=== PATIENT | female | born 1980 | race Caucasian/White ===

== ENCOUNTER → 2020-12-04 11:10 | Outpatient (BNVA) | payer OTHER, SELFPAY | PROVIDERS: PCP Internal Medicine; Visit Provider Physician Assistant ==

== ENCOUNTER → 2020-12-05 07:22 | Outpatient (BNVA) | payer OTHER, SELFPAY | PROVIDERS: PCP Internal Medicine; Visit Provider Surgery ==

== ENCOUNTER 2020-12-08 06:21 | Outpatient (REF) | payer OTHER, SELFPAY ==
[2020-12-08 07:37] LABS: MANUAL DIFF FLAG NO
[2020-12-08 07:46] LABS: Basophils Percent Auto 0.2 % (0-2); Eosinophils Absolute Auto 0.3 X10*3/uL (0.0-0.4); Eosinophils Percent Auto 2.4 % (0-4); Hematocrit 44.9 % (37-47); Hemoglobin 14.3 g/dl (12.0-16.0); Imm Gran Abs Auto 0.08 X10*3/uL (0.00-0.03); Imm Gran Pct Auto 0.8 % (0.0-0.4); Lymphocytes Absolute Auto 2.8 X10*3/uL (1.2-4.9); Lymphocytes Percent Auto 26.7 % (20-40); Mean Corpuscular HGB Conc 31.8 g/dl (31.0-35.0); Mean Corpuscular Hemoglobin 26.3 pg (27.0-33.0); Mean Corpuscular Volume 82.7 fL (80-98); Mean Platelet Volume 10.5 fL (9.4-12.3); Monocytes Absolute Auto 0.6 X10*3/uL (0.1-1.2); Monocytes Percent Auto 5.4 % (2-11); Neutrophils Absolute Auto 6.8 X10*3/uL (2.0-8.3); Neutrophils Percent Auto 64.5 % (45-73); Platelet Count 296 X10*3/uL (160-400); Red Blood Count 5.43 X10*6/uL (4.20-5.50); Red Cell Distribution Width 15.9 % (11.0-16.0); White Blood Count 10.6 X10*3/uL (4.8-10.8)
[2020-12-08 07:54] LABS: Estimated Average Glucose 117 mg/dL; Hemoglobin A1c % 5.7 %
[2020-12-08 08:04] LABS: Alanine Aminotransferase 22 U/L (0-31); Alkaline Phosphatase 65 U/L (39-117); Anion Gap 12 (12-20); Aspartate Amino Transferase 16 U/L (5-31); Bilirubin Total 0.6 mg/dL (0.0-1.0); Blood Urea Nitrogen 14 mg/dL (9-16); C Reactive Protein 2.51 mg/dL (< or = 0.50); Calcium 9.2 mg/dL (8.4-10.2); Carbon Dioxide 25 mmol/L (22-29); Chloride 106 mmol/L (96-108); Cholesterol 141 mg/dL; Estimated Glomerular Filt Rate > 60; Glucose Random 98 mg/dL (60-115); HDL Cholesterol 24 mg/dL; Iron 75 mcg/dL (30-160); LDL Cholesterol Calculated 83 mg/dl; Percent Iron Saturation 24 % (15-50); Potassium 4.1 mmol/L (3.3-5.1); Sodium 139 mmol/L (135-145); Total Iron Binding Capacity 314 mcg/dL (228-428); Total Protein 6.9 g/dL (6.5-8.0); Triglycerides 171 mg/dL; Unsaturated Iron Binding 239 ug/dL
[2020-12-08 08:24] LABS: Ferritin 49 ng/mL (10-250); Vitamin D 25-OH Total 16.8 ng/mL (>30)
[2020-12-08 09:49] LABS: Folate 9.3 ng/mL (> or = 4.0); Vitamin B12 310 pg/mL (200-900)
[2020-12-09 08:51] LABS: Insulin Level Total 31.8 uIU/mL
[2020-12-09 13:46] LABS: H Pylori Breath Test DETECTED (NOT DETECTED)
[2020-12-09 23:22] LABS: Calcium (PTHI) 9.1 mg/dL (8.6-10.2); PTHI 42 pg/mL (14-64)
[2020-12-11 15:47] LABS: Zinc 74 mcg/dL (60-130)
[2020-12-11 23:03] LABS: Vitamin A 42 mcg/dL (38-98)
[2020-12-12 11:32] LABS: Vitamin B1 9 nmol/L (8-30)
== END 2020-12-08 06:22 | disposition home or self-care (01) ==
LOC: HO.LAB 06:21
PROVIDERS: PCP Internal Medicine; Visit Provider Surgery
DX: E66.01 Morbid (severe) obesity due to excess calories (principal); K21.9 Gastro-esophageal reflux disease without esophagitis; R73.03 Prediabetes
CPT/HCPCS: 36415; 80053; 80061; 82306; 82607; 82728; 82746; 83013; 83036; 83525; 83540; 83970; 84425; 84443; 84590; 84630; 85025; 86140; 99211

== ENCOUNTER → 2020-12-12 13:58 | Outpatient (REF) | payer OTHER, SELFPAY ==
--- NOTE | ~2020-12-12 | XR_ITS ---
EXAMINATION: XR CHEST CLINICAL INFORMATION: Obesity COMPARISON: Previous chest x-ray June 2015 TECHNIQUE: 2 views of the chest were obtained. FINDINGS: No significant abnormality is noted involving the heart, lungs, mediastinum, bony thorax or soft tissues. XR/XR chest 2V IMPRESSION: Unremarkable examination.
--- NOTE | 2020-12-12 14:04 | ECG_ITS ---
Test Reason : E66.01 Blood Pressure : / mmHG Vent. Rate : 077 BPM Atrial Rate : 077 BPM P-R Int : 180 ms QRS Dur : 086 ms QT Int : 398 ms P-R-T Axes : 025 008 038 degrees QTc Int : 450 ms Normal sinus rhythm Normal ECG No previous ECGs available Referred By: Earnest Alvarado Electronically Signed By:Juventino Valle
== END ==
LOC: HO.CARD 13:58
PROVIDERS: PCP Internal Medicine; Visit Provider Surgery
DX: E66.01 Morbid (severe) obesity due to excess calories (principal); K21.9 Gastro-esophageal reflux disease without esophagitis; R73.03 Prediabetes
CPT/HCPCS: 71046; 93005; 93225

== ENCOUNTER → 2020-12-19 14:49 | Outpatient (BNVA) | payer OTHER, SELFPAY | PROVIDERS: PCP Internal Medicine; Visit Provider Physician Assistant ==

== ENCOUNTER 2020-12-23 08:58 | Outpatient (REF) | payer OTHER, SELFPAY ==
--- NOTE | ~2020-12-23 | US_ITS ---
EXAMINATION: US COMPLETE ABDOMEN WITH LIVER ELASTOGRAPHY CLINICAL INFORMATION: Obesity COMPARISON: None. TECHNIQUE: Real-time imaging of the abdominal viscera. Noninvasive ultrasound liver fibrosis assessment is performed using Wojciech ElastPQ point quantification shear wave elastography (pSWE) with a C5-2 MHz transducer. Multiple elastography samples are obtained. FINDINGS: PANCREAS: The visualized pancreatic head and body are normal in appearance. The remainder of the pancreas is obscured from visualization by the overlying bowel gas. ABDOMINAL AORTA: The proximal, middle, and distal aortic segments are normal in caliber. INFERIOR VENA CAVA: Visualized portions are normal. LIVER: Liver echotexture is increased. The liver is normal in contour and size. No focal lesion or intrahepatic biliary duct dilatation. The right lobe measures 16.4 cm in length. The left lobe measures 11.6 cm in length. Portal flow is normal/hepatopedal Shear wave liver elastography median stiffness is 1.4 m/s (reference: normal median stiffness is 1.3 m/s or less). IQR/median stiffness to assess sampling precision is 0.24 (reference: good quality data set is IQR/median stiffness of 0.15 or less). GALLBLADDER: Surgically removed COMMON BILE DUCT: Normal in caliber measuring 0.5 cm in diameter. RIGHT KIDNEY: Normal. No hydronephrosis. No renal calculi or focal parenchymal lesions. The kidney measures 10.5 cm in maximum dimension. LEFT KIDNEY: Normal. No hydronephrosis. No renal calculi or focal parenchymal lesions. The kidney measures 11.3 cm in maximum dimension. SPLEEN: Normal. The spleen measures 8.9 cm in maximum dimension. FREE FLUID: None. US/US abdomen comp w elastography IMPRESSION: 1. Impression: Echogenic liver. Post cholecystectomy. Limited visualization of the tail the pancreas. 2. Liver elastography: Slightly limited due to sampling error. In the absence of other known clinical signs, rule out compensated advanced chronic liver disease. REFERENCE: Society of Radiologists in Ultrasound Liver Stiffness Thresholds (2020): LIVER STIFFNESS THRESHOLDS: *Liver Stiffness equal or less than 1.3 m/s: High probability of being normal. *Liver Stiffness less than 1.7 m/s: In the absence of other known clinical signs, rules out compensated advanced chronic liver disease. *Liver Stiffness 1.7-2.1 m/s: Suggestive of compensated advanced chronic liver disease but need further test for confirmation. *Liver Stiffness over 2.1 m/s: Rules in compensated advanced chronic liver disease. *Liver Stiffness over 2.4 m/s: Suggestive of clinically significant portal hypertension. QUALITY OF DATA SET: *IQR/Median value equal or less than 0.15 implies a quality data set. *IQR/Median value over 0.15 implies a poor quality data set. SIGNIFICANT CHANGE FROM PRIOR EXAM: Significant change if liver stiffness measurement is 10% or greater from prior exam. OTHER CONSIDERATIONS: The stage of liver fibrosis may be overestimated in the setting of acute hepatitis, liver inflammation, elevated liver function tests, hepatic vascular congestion, obstructive cholestasis, non-fasting state, and infiltrative diseases such as amyloidosis and lymphoma. In some patients with NAFLD, the liver stiffness thresholds for compensated advanced chronic liver disease may be lower. In causes other than viral hepatitis and NAFLD, liver stiffness thresholds are not well established.
--- NOTE | ~2020-12-23 | FL_ITS ---
EXAMINATION: XR GI SERIES CLINICAL INFORMATION: Obesity COMPARISON: None TECHNIQUE: Upper GI was performed using thin and thick barium and effervescent granules. FINDINGS: Esophageal motility is normal. There is a small sliding-type hiatal hernia.. There is significant gastroesophageal reflux. The stomach and duodenum are normal-appearing. No fold thickening, mass, ulcer or stricture is seen. FLUOROSCOPY TIME: 0.7 minutes DOSE AREA PRODUCT: 9 [place] per centimeter squared. 23 saved fluoroscopic images. FL/FL upper GI series IMPRESSION: Significant gastroesophageal reflux. Small sliding-type hiatal hernia.
== END 2020-12-23 08:59 | disposition home or self-care (01) ==
LOC: HO.US 08:58
PROVIDERS: Visit Provider Surgery
DX: Z01.818 Encounter for other preprocedural examination (principal); E66.01 Morbid (severe) obesity due to excess calories; K21.9 Gastro-esophageal reflux disease without esophagitis; R73.03 Prediabetes
CPT/HCPCS: 74240; 76705; 76981

== ENCOUNTER → 2020-12-26 08:25 | Outpatient (BNVA) | payer OTHER, SELFPAY | PROVIDERS: PCP Internal Medicine; Visit Provider Surgery ==

== ENCOUNTER → 2021-01-02 08:25 | Outpatient (BNVA) | payer OTHER, SELFPAY | PROVIDERS: PCP Internal Medicine; Visit Provider Dietitian, Registered | DX: E66.01 Morbid (severe) obesity due to excess calories (principal); K21.9 Gastro-esophageal reflux disease without esophagitis; K58.9 Irritable bowel syndrome, unspecified; R73.03 Prediabetes; Z91.013 Allergy to seafood; Z71.3 Dietary counseling and surveillance; Z90.49 Acquired absence of other specified parts of digestive tract; Z98.51 Tubal ligation status | CPT/HCPCS: 97802 ==

== ENCOUNTER → 2021-01-08 11:55 | Outpatient (BNVA) | payer OTHER, SELFPAY | PROVIDERS: PCP Internal Medicine; Visit Provider Physician Assistant ==

== ENCOUNTER → 2021-01-13 07:29 | Outpatient (BNVA) | payer OTHER, SELFPAY | PROVIDERS: PCP Internal Medicine; Visit Provider Surgery ==

== ENCOUNTER 2021-01-15 08:29 | Outpatient (REF) | payer OTHER, SELFPAY ==
[2021-01-16 13:47] LABS: H Pylori Breath Test DETECTED (NOT DETECTED)
== END 2021-01-15 08:30 | disposition home or self-care (01) ==
LOC: HO.LNP 08:29
PROVIDERS: Physician Assistant; PCP Internal Medicine; Visit Provider Physician Assistant
DX: E66.01 Morbid (severe) obesity due to excess calories (principal)
CPT/HCPCS: 83013; 99211

== ENCOUNTER → 2021-01-22 08:18 | Outpatient (BNVA) | payer OTHER, SELFPAY | PROVIDERS: PCP Internal Medicine; Visit Provider Dietitian, Registered | DX: E66.01 Morbid (severe) obesity due to excess calories (principal); Z68.39 Body mass index [BMI] 39.0-39.9, adult | CPT/HCPCS: 97803 ==

== ENCOUNTER → 2021-01-23 12:53 | Outpatient (BNVA) | payer OTHER, SELFPAY | PROVIDERS: PCP Internal Medicine; Visit Provider Physician Assistant ==

== ENCOUNTER → 2021-02-09 07:05 | Outpatient (BNVA) | payer OTHER, SELFPAY | PROVIDERS: PCP Internal Medicine; Visit Provider Surgery ==

== ENCOUNTER → 2021-02-19 11:34 | Outpatient (BNVA) | payer OTHER, SELFPAY | PROVIDERS: PCP Internal Medicine; Referring Provider Internal Medicine; Visit Provider Physician Assistant ==

== ENCOUNTER → 2021-02-20 13:32 | Outpatient (BNVA) | payer OTHER, SELFPAY | PROVIDERS: PCP Internal Medicine; Visit Provider Physician Assistant ==

== ENCOUNTER 2021-02-23 09:03 | Outpatient (REF) | payer OTHER, SELFPAY ==
[2021-02-24 14:27] LABS: H Pylori Breath Test DETECTED (NOT DETECTED)
== END 2021-02-23 09:04 | disposition home or self-care (01) ==
LOC: HO.LNP 09:03
PROVIDERS: PCP Internal Medicine; Visit Provider Physician Assistant
DX: A04.8 Other specified bacterial intestinal infections (principal)
CPT/HCPCS: 83013; 99211

== ENCOUNTER → 2021-02-25 09:05 | Outpatient (BNVA) | payer OTHER, SELFPAY | PROVIDERS: PCP Internal Medicine; Visit Provider Physician Assistant ==

== ENCOUNTER 2021-02-25 19:46 | Inpatient (IN) | payer OTHER, SELFPAY ==
[2021-02-12 14:38] VITALS: BMI 39.1
[2021-02-19 12:10] LABS: MANUAL DIFF FLAG NO
[2021-02-19 12:21] LABS: Basophils Percent Auto 0.2 % (0-2); Eosinophils Absolute Auto 0.1 X10*3/uL (0.0-0.4); Eosinophils Percent Auto 1.5 % (0-4); Hematocrit 46.4 % (37-47); Hemoglobin 14.9 g/dl (12.0-16.0); Imm Gran Abs Auto 0.05 X10*3/uL (0.00-0.03); Imm Gran Pct Auto 0.5 % (0.0-0.4); Lymphocytes Absolute Auto 2.2 X10*3/uL (1.2-4.9); Lymphocytes Percent Auto 23.7 % (20-40); Mean Corpuscular HGB Conc 32.1 g/dl (31.0-35.0); Mean Corpuscular Hemoglobin 26.8 pg (27.0-33.0); Mean Corpuscular Volume 83.6 fL (80-98); Mean Platelet Volume 10.7 fL (9.4-12.3); Monocytes Absolute Auto 0.6 X10*3/uL (0.1-1.2); Monocytes Percent Auto 6.4 % (2-11); Neutrophils Absolute Auto 6.3 X10*3/uL (2.0-8.3); Neutrophils Percent Auto 67.7 % (45-73); Platelet Count 281 X10*3/uL (160-400); Red Blood Count 5.55 X10*6/uL (4.20-5.50); Red Cell Distribution Width 15.7 % (11.0-16.0); White Blood Count 9.3 X10*3/uL (4.8-10.8)
[2021-02-19 12:22] LABS: Prothrombin Time 11.2 SEC (9.9-13.0)
[2021-02-19 12:29] LABS: Estimated Average Glucose 111 mg/dL; Hemoglobin A1c % 5.5 %
[2021-02-19 12:48] LABS: TSH reflex Free T4 1.24 uIU/mL (0.32-4.0)
[2021-02-19 12:52] LABS: Alanine Aminotransferase 21 U/L (0-31); Alkaline Phosphatase 75 U/L (39-117); Anion Gap 12 (12-20); Aspartate Amino Transferase 20 U/L (5-31); Bilirubin Total 0.4 mg/dL (0.0-1.0); Blood Urea Nitrogen 11 mg/dL (9-16); C Reactive Protein 1.81 mg/dL (< or = 0.50); Calcium 9.4 mg/dL (8.4-10.2); Carbon Dioxide 26 mmol/L (22-29); Chloride 106 mmol/L (96-108); Cholesterol 152 mg/dL; Creatinine Clr Calc Pharmacy 106.8; Estimated Glomerular Filt Rate > 60; Glucose Random 95 mg/dL (60-115); HDL Cholesterol 23 mg/dL; LDL Cholesterol Calculated 93 mg/dl; Potassium 4.4 mmol/L (3.3-5.1); Sodium 140 mmol/L (135-145); Total Protein 6.9 g/dL (6.5-8.0); Triglycerides 183 mg/dL
[2021-02-20 17:21] LABS: Insulin Level Total 17.2 uIU/mL
--- NOTE | 2021-02-25 19:44 | MHC.SHP ---
Pre-Procedural Eval Section A Date of Service: 02/25/21 The patient is an INPATIENT: Yes Changes since office visit: No Cold of Flu in the past 2 weeks, No New Medical Problems, No Changes in Medication and No Patient answered all questions Section B Chief Complaint: Morbid Severe Obesity Relevant Family History (Specify if Yes): No Relevant Social History: None Present Medications: see Short Stay Collaborative assessment Medical History: No relevant PMH History of Previous Operations: No relevant previous surgery Allergies: Allergies Allergy/AdvReac Type Severity Reaction Status Date / Time seafood Allergy Severe Anaphylaxis Verified 02/12/21 14:24 Review of Systems Sugical H&P ROS: Negative: Constitution, Cardiovascular, Respiratory, Neurological, Psychiatric, Hem-Onc, Allergic/Immunologic, Gastrointestinal, Genitourinary, Musculoskeletal, Integumentary, Endocrine and Eyes/Ears/Nose/Throat Exam Surgical H&P Exam: Normal: HEENT, Normal: Heart, Normal: Lungs, Normal: Extremities, Normal: Abdomen, Normal: Skin and Normal: Neurological Plan Diagnosis/Plan: Unchanged I have reviewed the history and physical and performed a pertinent physical examination on my patient. No changes have occurred unless specified.
[2021-02-26] VITALS (13 sets, daily range): BP systolic 106–138; BP diastolic 55–82; PULSE 62–85; RESP 12–18; TEMP 35.7–36.9; O2SAT 92–100
[2021-02-26] MEDS: Lactated Ringers 1,000 ML 999 ML IV (09:12)
[2021-02-26 09:20] LABS: COVID-19 Test Negative (Negative); IDNOW Serial# 9DD0AD1C
[2021-02-26] MEDS: Lactated Ringers 1,000 ML 100 ML IVCONT (10:42)
--- NOTE | 2021-02-26 10:42 | P.CONAN_ITS ---
HPI - Anesthesia Eval Consult details Narrative: 40 yo female patient for sleeve gastrectomy. PMFSH Active Problems Active Problems: All Active Problems (Updated 02/12/21 @ 14:24 by Yaritza Brooks) Vitamin D deficiency (Acute) Vitamin B12 deficiency (Acute) H. pylori infection (Acute) Prediabetes (Acute) Anxiety (Acute) IBS (irritable bowel syndrome) (Acute) GERD (gastroesophageal reflux disease) (Acute) Morbid obesity (Acute) Past Medical History Medical History (Updated 02/12/21 @ 14:24 by Yaritza Brooks) Anxiety COVID-19 vaccine series completed GERD (gastroesophageal reflux disease) IBS (irritable bowel syndrome) Morbid obesity Prediabetes Family History Family History (Updated 12/05/20 @ 07:39 by LORRAINE Castelan) Mother Diabetes Hypertension Cirrhosis Father Thyroid crisis IBS (irritable bowel syndrome) Sister No problems noted. Sister No problems noted. Brother Thyroid crisis Diabetes Daughter No problems noted. Daughter Muscular dystrophy Daughter Prediabetes Family history of problems with anesthesia: No Surgical History Surgical History Hx of cholecystectomy Hx of knee surgery Hx of tubal ligation History of Problems with Anesthesia: No Social History Social History (Updated 12/05/20 @ 07:40 by LORRAINE Castelan) Are you a primary laboratory animal care veterinarian to a significant other at home: No Do you presently have visiting nurse or other home services: No Alcohol intake: current Alcohol intake frequency: holidays/special occasions only Patient Tobacco Use Status: Former Tobacco user Quit Date: 3 yrs ago Tobacco use type: Cigarette Use of substances other than those prescribed or required for medical reasons: No Substance Use Type Other:: Occasionally has a cigar when having a drink Are you DNR?: No Advance Directives: No Advance Directives Information Provided: No Advance Directives on File: No Recently lost weight without trying: No How much weight loss: 24-33 pounds Eating poorly because of decreased appetite: No Nutrition screen score: 3 Nutrition Risks: No Nutritional Risk Patient : No FDLMP: 01/18/21 : No Poor oral hygiene: No Meds Allergies Allergy/AdvReac Type Severity Reaction Status Date / Time seafood Allergy Severe Anaphylaxis Verified 02/26/21 08:36 Exam Exam Date and Time: February 26, 2021 1042 Height,Weight and Vital Signs: Height 5 ft 4 in Weight 103.419 kg Last Vital Signs Temp 98.4 F 02/26/21 08:53 Pulse 82 02/26/21 08:53 Resp 16 02/26/21 08:53 BP 111/73 02/26/21 08:53 Pulse Ox 98 02/26/21 08:53 Pertinent Lab Results Pertinent Lab Results: Laboratory Tests 02/19/21 02/19/21 02/19/21 11:15 11:15 11:15 WBC 9.3 RBC 5.55 H Hgb 14.9 Hct 46.4 MCV 83.6 MCH 26.8 L MCHC 32.1 RDW 15.7 Plt Count 281 MPV 10.7 Immature Gran % (Auto) 0.5 H Neut % (Auto) 67.7 Lymph % (Auto) 23.7 [place] % (Auto) 6.4 Eos % (Auto) 1.5 Baso % (Auto) 0.2 Lymph # (Auto) 2.2 [place] # (Auto) 0.6 Eos # (Auto) 0.1 Baso # (Auto) 0.0 Abs Immat Gran (auto) 0.05 H Absolute Neuts (auto) 6.3 Absolute Nucleated RBC 0.000 Nucleated RBC % (auto) 0.0 PT 11.2 INR 1.0 APTT 36.0 Sodium 140 Potassium 4.4 Chloride 106 Carbon Dioxide 26 Anion Gap 12 BUN 11 Creatinine 0.82 Estim Creat Clear Calc 106.8 Estimated GFR > 60 Random Glucose 95 Estimat Average Glucose Hemoglobin A1c % Total Insulin Calcium 9.4 Total Bilirubin 0.4 AST 20 ALT 21 Alkaline Phosphatase 75 C-Reactive Protein 1.81 H Total Protein 6.9 Albumin 4.0 Triglycerides 183 Cholesterol 152 LDL Cholesterol, Calc 93 HDL Cholesterol 23 TSH 1.24 COVID-19 ([facility]ACUNDO) COVID-19 Clin Com Blood Type Antibody Screen 02/19/21 02/19/21 02/19/21 11:15 11:15 11:15 WBC RBC Hgb Hct MCV MCH MCHC RDW Plt Count MPV Immature Gran % (Auto) Neut % (Auto) Lymph % (Auto) [place] % (Auto) Eos % (Auto) Baso % (Auto) Lymph # (Auto) [place] # (Auto) Eos # (Auto) Baso # (Auto) Abs Immat Gran (auto) Absolute Neuts (auto) Absolute Nucleated RBC Nucleated RBC % (auto) PT INR APTT Sodium Potassium Chloride Carbon Dioxide Anion Gap BUN Creatinine Estim Creat Clear Calc Estimated GFR Random Glucose Estimat Average Glucose 111 Hemoglobin A1c % 5.5 Total Insulin 17.2 Calcium Total Bilirubin AST ALT Alkaline Phosphatase C-Reactive Protein Total Protein Albumin Triglycerides Cholesterol LDL Cholesterol, Calc HDL Cholesterol TSH COVID-19 ([facility]ACUNDO) COVID-19 Clin Com Blood Type O Positive Antibody Screen NEGATIVE 02/26/21 08:45 WBC RBC Hgb Hct MCV MCH MCHC RDW Plt Count MPV Immature Gran % (Auto) Neut % (Auto) Lymph % (Auto) [place] % (Auto) Eos % (Auto) Baso % (Auto) Lymph # (Auto) [place] # (Auto) Eos # (Auto) Baso # (Auto) Abs Immat Gran (auto) Absolute Neuts (auto) Absolute Nucleated RBC Nucleated RBC % (auto) PT INR APTT Sodium Potassium Chloride Carbon Dioxide Anion Gap BUN Creatinine Estim Creat Clear Calc Estimated GFR Random Glucose Estimat Average Glucose Hemoglobin A1c % Total Insulin Calcium Total Bilirubin AST ALT Alkaline Phosphatase C-Reactive Protein Total Protein Albumin Triglycerides Cholesterol LDL Cholesterol, Calc HDL Cholesterol. TSH COVID-19 (FACUNDO) Negative COVID-19 Clin Com See Note Blood Type Antibody Screen CXR 12/12/20: No significant abnormality is noted involving the heart, lungs, mediastinum, bony thorax or soft tissues. IMPRESSION: Unremarkable examination EKG 12/12/20: Normal sinus rhythm. 77 Normal ECG No previous ECGs available Airway Mallampati Class: II TM Dist: >3cm Neck ROM: Full Loose/Missing/Broken Teeth: Yes (Extracted) Heart: RRR Lungs: CTAB Assessment and Plan Final Anesthetic Review Family History of Problems with Anesthesia: No History of Problems with Anesthesia: No NPO: Yes ASA Class: III Final Preanesthetic Review: No Changes in Pt Med Stat, Meds/Allgs Chart Reviewed, Consent Obtained/Reviewed and Anes Risks/Benef Reviewed Patient Risk: Intermediate Procedure Risk: Intermediate Assessment/Block/Sedation in SS: Assess/Block/Sedation-SS Anesthetic Plan Anesthetic Plan: GA Disposition: Standard PACU and Inp. Admit - Standard Bed
--- NOTE | 2021-02-26 13:19 | P.DS_ITS ---
DS: Providers Provider Date of Service: 02/27/21 Date of admission: 02/25/21 19:46 Primary care physician: Lidia Magallanes MD DS: Medications Discharge Medications Home Medications: Previous Rx's Medication Instructions Recorded cholecalciferol (vitamin D3) 125 125 mcg PO DAILY #30 cap 12/11/20 mcg (5,000 unit) capsule mecobalamin (vitamin B12) 1,000 1,000 mcg SUBLINGUAL DAILY #30 tab 12/11/20 mcg disintegrating tablet,sublingual ondansetron HCl 4 mg tablet 4 mg PO Q12H #20 tab 02/09/21 (Zofran) pantoprazole 40 mg tablet,delayed 40 mg PO DAILY #30 tab 02/09/21 release sucralfate 100 mg/mL oral 10 ml PO BID #400 ml 02/09/21 suspension amoxicillin 500 mg tablet 1,000 mg PO BID 14 Days #56 tab 02/24/21 clarithromycin 500 mg tablet 500 mg PO BID 14 Days #28 tab 02/24/21 DS: Summary Hospital Course Hospital Course: ADMITTING DIAGNOSIS: morbid obesity, diaphragmatic hernia, GERD, IBS DISCHARGE DIAGNOSIS: same, s/p laparoscopic sleeve gastrectomy and repair diaphragmatic hernia PAST SURGICAL HISTORY: lap cholecystectomy, knee surgery, tubal ligation PROCEDURE: upper endoscopy, laparoscopic sleeve gastrectomy and repair of diaphragmatic hernia hernia DISCHARGE SUMMARY: History of Present Illness: The patient is a 40 year-old woman with a BMI of 43.4 kg/m2 and associated co- morbidities as described above. The patient had extensive work-up,lost 24.8 lbs preoperatively and was electively scheduled for laparoscopic, possible open sleeve gastrectomy and gastropexy. Risks and complications of the surgery were discussed with the patient in advance, particularly the possibility of , pulmonary embolism, anastomotic leak, bleeding, bowel injury, GERD, cardiac, renal or pulmonary complications. The patient understood all the risks and was in agreement with the surgical plan. Hospital Course: The patient underwent an uneventful laparoscopic sleeve gastrectomy with gastropexy and repair of diaphragmatic hernia on the day of admission. Postoperatively, the patient was transferred to the surgical floor. The patient received IV Acetaminophen and IV dilaudid for pain control. Patient was started on bariatric phase 1 diet POD #0. On postoperative day one, the patient was feeling well without nausea, vomiting, fevers, or tachycardia. The patient had some mild incisional pain and the abdomen was soft. On the morning of postoperative day one, the patient was continued on 1 ounce of water or ice every half hour. During the day, the patient did fairly well, having some incisional pain, but able to ambulate adequately and to tolerate liquids well. Since the patient is doing well, we decided that the patient was ready to be discharged. The patient was given instructions to follow-up with me next week and to call my office for any fever over 101, persistent abdominal pain, nausea, vomiting, GERD, symptoms of DVT such as calf tenderness, or leg swelling, or pulmonary embolism such as chest pain or shortness of breath. The patient was also instructed to drink 40-60 ounces of liquids per day using the 1-ounce cups. The patient had been given prescriptions for Tylenol for pain, Zofran prn for nausea, and pantoprazole and carafate previously. The patient was encouraged to ambulate and use the incentive spirometer. The patient was allowed to shower, but no baths, and encouraged to stay active at home. All of these instructions were given to the patient personally. All questions were answered and the patient understood all instructions, the instructions were also given to the patient in print. Time Spent with Patient Time attestation: Total time spent providing and/or coordinating discharge services: Discharge coordination time: Less than 30 minutes Quality: Stroke Does the patient have a stroke diagnosis?: No Physical Exam Vital Signs: Vital Signs: Last Vital Signs Temp 98.4 F 02/26/21 08:53 Pulse 82 02/26/21 08:53 Resp 16 02/26/21 08:53 BP 111/73 02/26/21 08:53 Pulse Ox 98 02/26/21 08:53 Body Mass Index 39.1 DS: Data Data Completed and Pending Pending studies at discharge: Pending at discharge 02/26/21 12:27 Surgical [PTH] Routine Labs on day of discharge: Laboratory Results - last 24 hr 02/26/21 08:45 COVID-19 (FACUNDO) Negative COVID-19 Clin Com See Note Discharge Plan Discharge Anticipated Discharge Date/Time: 02/27/21 10:16 Patient Disposition: Home, Self-Care Discharge Diagnosis: s/p sleeve gastrectomy Referrals: Lidia Magallanes MD [Primary Care Provider] - 1 Week Discharge Medications: Continued pantoprazole 40 mg tablet,delayed release (DR/EC) 40 mg PO DAILY Qty: 30 RF: 2 sucralfate 100 mg/mL suspension 10 ml PO BID Qty: 400 RF: 2 ondansetron HCl [Zofran] 4 mg tablet 4 mg PO Q12H Qty: 20 RF: 0 Discontinued cholecalciferol (vitamin D3) 125 mcg (5,000 unit) capsule 125 mcg PO DAILY Qty: 30 RF: 2 mecobalamin (vitamin B12) 1,000 mcg tablet,disintegrating 1,000 mcg sublingual DAILY Qty: 30 RF: 2 clarithromycin 500 mg tablet 500 mg PO BID 14 Days Qty: 28 RF: 0 amoxicillin 500 mg tablet 1,000 mg PO BID 14 Days Qty: 56 RF: 0 Discharge Orders: Discharge Order (Routine); Ordered 02/27/21 Ordered By: Earnest Alvarado Diet: other Activity on Discharge: No heavy lifting Stand Alone Forms: Patient Portal Discharge page Care Plan Goals: weight loss Health Concerns: morbid obesity Plan of Treatment: No tub baths, sex or returning to work until discussed at first post op appointment. No exercise, alcohol, tobacco or illegal drug use. Continue to use incentive spirometer hourly while awake. Walk in home for 5- 10 minutes every 2 hours during the first week. Continue phase 1 diet today and start phase 2 diet tomorrow morning. Follow all instructions in the bariatric handbook and call with any questions. The patient's medical history has been reviewed and they are considered low risk for post op DVT and therefore DVT prophylaxis is not considered necessary. Travel after surgery was reviewed. The patient has not disclosed any travel plans during the first 30 days after surgery and they have been advised that within the first 30 days after surgery any bus, plane, train or car travel over 2 hours in duration is contraindicated due to the possibility of developing blood clots from immobility. Any travel, needs to include periods of ambulation of 10 minutes in duration every 2 hours. The patient was instructed to discuss any plans for travel during this period with their bariatric surgeon. Assessment: stable, s/p sleeve gastrectomy
--- NOTE | 2021-02-26 13:24 | PM.OP ---
Brief Operative Note Date of Service: 02/26/21 Pre-op diagnosis: Severe obesity and comorbidities (see below) Post-op diagnosis: same (& diaphragmatic hernia) Procedure: INITIAL PATIENT BMI ON PRESENTATION AT OUR OFFICE: 43.5 kg/m2 LAST BMI BEFORE SURGERY: 38.7 kg/m2 COMORBIDITIES:GERD, hyperinsulinemia, IBS, prediabetes, anxiety, GERD, diaphragmatic hernia, liver steatosis The patient participated in an intensive weekly lifestyle ?intervention and exercise program during which the patient ?has lost between the initial office visit and the last preoperative visit 27.8lbs, or 11% of initial actual body weight. The patient met the BMI-criteria for bariatric surgery based on the BMI on initial presentation. The patient should not be penalized for achieving such weight loss because ?it is not sustainable long-term without surgical intervention and it was achieved in preparation for bariatric surgery ?under my direction and based on my published research ([email or web address]) ?that a 10% preoperative weight loss improves long-term weight loss after surgery and reduces perioperative complications.? Insurance carriers such as [facility] have endorsed my recommendations ?and have included in their policies criteria to include a 10% preoperative weight loss requirement. PROCEDURE: Esophago-gastroscopy, laparoscopic repair of incarcerated diaphragmatic hernia, laparoscopic lysis of adhesions, laparoscopic sleeve gastrectomy and laparoscopic gastropexy INDICATIONS: This is a 40 year-old female who was electively scheduled for laparoscopic, possibly open sleeve gastrectomy. The risks and complications of the procedure were discussed with the patient in advance, particularly the possibility of ; pulmonary embolism; staple line leak; bleeding; GERD; cardiac, pulmonary, or renal complications; as well as long-term problems such as insufficient weight loss, vitamin deficiency, strictures, or ulcers. The patient understood all the risks, and was in agreement to proceed with surgery. DESCRIPTION OF PROCEDURE: After informed consent was obtained from the patient, the patient was given preoperative antibiotics, and was transferred to the operating room. After successful induction of general anesthesia, a Ayala catheter and pneumatic compressive devices were placed on both lower extremities. An upper endoscopy was performed next. The oropharynx and esophagus appeared to be within normal limits. There was a diaphragmatic hernia present of moderate size consistent with the findings of the preoperative upper GI. The stomach was entered. Then after all fluid and air were suctioned and the stomach was fully decompressed, the scope was withdrawn and secured in the mid esophagus. The patient was then prepped and draped in the usual sterile manner, and abdominal access was established at the right upper quadrant with the Conchita technique. A 12 mm blunt port was inserted, and the abdomen was insufflated with CO2 to a pressure of 15 mmHg. Under direct visualization, additional ports were placed, specifically two 5 mm Versi-step ports to the left upper quadrant, and a 5 mm Versi-Step port to the right upper quadrant. 1% lidocaine plain was used to infiltrate all port sites as well as all fascia defects. Using the EndoClose suture passer device, I placed a #1 Polysorb tie across the falciform ligament in order to retract it up against the abdominal wall and prevent injury of the ligament with our instruments during the procedure. There were adhesions in the abdomen from previous laparoscopic cholecystectomy involving the omentum and the anterior abdominal wall. Those were lysed completely with the ultrasonic device. Following that, the patient was placed in a steep reverse Trendelenburg position. An additional 5 mm port was placed to the right flank for the Mediflex retractor that was used to retract the left lobe of the liver. The gastro-esophageal fat pad was opened with the ultrasonic device (Thunderbeat, Olympus) and the anterior esophagus and hiatus were exposed. The angle of His was opened with the ultrasonic device the fundus of the stomach from any diaphragmatic and splenic attachments. I then opened the gastrocolic ligament between the transverse colon and the greater curvature of the stomach with the ultrasonic device to enter the lesser sac and facilitate the ligation of the short gastric vessels. I started at a mid-point along the greater curvature and using the Thunderbeat, all short gastric vessels were divided all the way to the angle of His until the left griselda was completely dissected at its entirety. I then divided the gastro-colic ligament distally to a distance of about 3-4 cm proximal to the esophagus. There were extensive congenital adhesions between the pancreas and posterior gastric wall. Those were lysed completely with the ultrasonic device. There was an obvious significant-sized hiatal hernia. I continued dissecting along the hiatus toward the left griselda and the angle of His. I fully mobilized the fat pad that was incarcerated in the hernia. I then continued by dissecting even further into the posterior retro-esophageal space all the way to the angle of His. I continued to mobilize the esophagus into the mediastinum circumferentially. Both vagal nerves were seen and preserved. At that point, I was able to have at least 3 to 5 cm of esophagus into the abdomen.? After I completely mobilized the esophagus from both the left and right griselda and I had a good mobilization of the esophagus circumferentially, I closed the hernia defect with three interrupted #0 Surgidac sutures using the Endo Stitch device, two of which were placed posterior and one anterior to the esophagus. ? The stomach was then divided transversely with one Endo ALEXEY-45 purple, one ALEXEY-45 orange, and four ALEXEY-60 articulating orange loads using the LAN-PowerON stapler and loads. Every effort was made that the gastric sleeve had a tubular shape and an even caliber throughout. Once the sleeve resection was completed, the staple line of the gastric sleeve was reinforced with Hemoclips. The resected stomach was retrieved without difficulty from the Conchita port. A gastropexy was then performed in order to prevent postoperative GERD and partial gastric volvulus. Several interrupted 2.0 Surgidac sutures were placed between the sleeve's staple line and the previously divided greater omentum and gastro-colic ligament using the Endo-Stitch device. ?An upper endoscopy was performed. There was no narrowing at the GE junction. The scope was easily advanced all the way to the pylorus which was clearly visualized. There was no narrowing anywhere and the sleeve's caliber was even throughout. The sleeve's staple line was inspected and there was no evidence of ischemia, bleeding or dehiscence. At that point the gastroscope was withdrawn from the patient?s mouth while we were decompressing the bowel and the stomach from any remaining air. I looked into the lesser sac to see how the sleeve was situating and it was situating well. There was no bleeding from the staple line, spleen, or short gastric vessels. The Mediflex retractor was removed, and the undersurface of the liver was inspected and there was no bleeding. The patient was placed in supine position. I closed the fascial defect of the 12 mm port site with a figure of eight #1 Polysorb suture. Then 100 cc 0.25 % Marcaine plain with 10 mg of Dexamethasone were used to infiltrate the fascial closure as well as all skin incisions. At this point, the abdomen was deflated, all ports were removed under direct vision, and no bleeding was noted from any of the port sites. The skin incisions were irrigated with saline and were closed with 4-0 absorbable monofilament sutures. Steri-Strips and OpSites were used to cover all incisions. The patient was extubated and was transferred in stable condition to the recovery room for further care. I was present and performed all wilhelm parts of the procedure. Ms. Thomas was the under water assistant. There were no residents to assist with this case. Tahir Alvarado MD, PhD, FACS Surgeon: Earnest Alvarado MD Anesthesia: GETA, local and other (TAP block) Was an Sample Box Maker used for this Procedure?: Yes Sample Box Maker: Alisha Thomas Estimated blood loss (mL): 10 IV fluids (mL): 2,200 Urine output (mL): 0 (No Ayala to record) Pathology: other (Stomach) Condition: stable Disposition: PACU
[2021-02-26] MEDS: Famotidine/PF 20 MG/2 ML VIAL IVPUSH ×2 (13:27→21:08)
[2021-02-26] MEDS: HYDROmorphone HCl 0.5 MG/0.5 ML SYRINGE 0.25 MG IVPUSH ×2 (13:28→14:05)
--- NOTE | 2021-02-26 13:30 | PM.PNGS ---
Subjective Subjective Date of Service: 02/27/21 Interval history: Patient had mild incisional pain but was able to ambulate and use the incentive spirometer. Is tolerating phase 1 bariatric diet. Physical Exam Vital Signs: Vital Signs: Last Vital Signs Temp 98.4 F 02/26/21 13:15 Pulse 81 02/26/21 13:20 Resp 14 02/26/21 13:15 BP 126/71 02/26/21 13:20 Pulse Ox 100 02/26/21 13:20 Body Mass Index 39.1 GI: Inspection: Yes normal to inspection, Yes incision (clean, dry and intact) and Yes obesity Extrem: Right lower extremity: normal to inspection (no calf tenderness) Left lower extremity: normal to inspection (no calf tenderness) Procedures Date of Service Date of Service: 02/27/21 Progress Note: A&P Assessment and plan (1) S/P laparoscopic sleeve gastrectomy: Status: Acute Assessment and Plan: s/p laparoscopic sleeve gastrectomy, diaphragmatic hernia repair and gastropexy Doing well Check am labs. If OK, will discharge home (2) Status post repair of paraesophageal diaphragmatic hernia: Status: Acute (3) Diaphragmatic hernia: Status: Acute (4) Obesity: Status: Acute (5) BMI 38.0-38.9,adult: Status: Acute (6) Prediabetes: Status: Acute (7) IBS (irritable bowel syndrome): Status: Acute (8) GERD (gastroesophageal reflux disease): Status: Acute (9) Hyperinsulinemia: Status: Acute (10) Steatosis, liver: Status: Acute (11) Abdominal adhesions: Status: Acute Fall Risk Details Current Medications: Current Medications Generic Name Dose Route Start Last Admin Trade Name Freq PRN Reason Stop Dose Admin Famotidine 20 mg 02/26/21 13:20 02/26/21 13:27 Famotidine/Pf 20 Mg/2 Ml Vial IVPUSH 20 mg BID J CARLOS Administration Fentanyl 25 mcg 02/26/21 11:05 Fentanyl Citrate/Pf 100 Mcg/2 Ml Vial IVPUSH Q5M PRN Pain, Moderate (Pain Scale 4-6 Hydromorphone HCl 0.25 mg 02/26/21 11:05 02/26/21 13:28 Hydromorphone Hcl 0.5 Mg/0.5 Ml Syringe IVPUSH 0.25 mg Q5M PRN Administration Pain, Severe (Pain Scale 7-10) Lactated Ringer's 1,000 mls @ 100 mls/hr 02/26/21 10:45 02/26/21 10:42 Lr IVCONT 100 mls/hr .Q10H J CARLOS Administration Promethazine HCl 6.25 mg/ 50.25 mls @ 201 mls/hr 02/26/21 11:05 Sodium Chloride IV ONCE PRN Nausea and Vomiting Ondansetron HCl 4 mg 02/26/21 11:05 Ondansetron Hcl 4 Mg/2 Ml Vial IVPUSH ONCE PRN Nausea and Vomiting Time Spent With Patient Time: Total time spent is greater than 50% in coordination of care (as documented) at patient's floor/unit and/or counseling patient: Time with patient: less than 15 minutes Quality Stroke Does the patient have a stroke diagnosis?: No VTE Prior VTE?: No VTE Risk Level:: Surgical - moderate VTE Device Contraindication: N/A - Device Ordered VTE Drug Contraindication: Treatment Not Indicated
[2021-02-26 13:41] LABS: Hemoglobin 13.7 g/dl (12.0-16.0)
[2021-02-26 14:12] LABS: Anion Gap 13 (12-20); Blood Urea Nitrogen 8 mg/dL (9-16); Calcium 8.5 mg/dL (8.4-10.2); Carbon Dioxide 23 mmol/L (22-29); Chloride 107 mmol/L (96-108); Estimated Glomerular Filt Rate > 60; Glucose Random 128 mg/dL (60-115); Potassium 4.3 mmol/L (3.3-5.1); Sodium 139 mmol/L (135-145)
[2021-02-26] MEDS: Lactated Ringers 1,000 ML 125 ML IVCONT ×2 (15:39→22:18)
[2021-02-27 03:07] VITALS: BP 101/56; PULSE 56; RESP 16; TEMP 36.3; O2SAT 97
[2021-02-27] MEDS: Lactated Ringers 1,000 ML 125 ML IVCONT (05:22)
[2021-02-27 06:25] LABS: MANUAL DIFF FLAG NO
[2021-02-27 06:44] LABS: Basophils Percent Auto 0.1 % (0-2); Hemoglobin 12.7 g/dl (12.0-16.0); Imm Gran Abs Auto 0.08 X10*3/uL (0.00-0.03); Imm Gran Pct Auto 0.6 % (0.0-0.4); Lymphocytes Absolute Auto 1.7 X10*3/uL (1.2-4.9); Lymphocytes Percent Auto 12.2 % (20-40); Mean Corpuscular HGB Conc 32.6 g/dl (31.0-35.0); Mean Corpuscular Hemoglobin 27.1 pg (27.0-33.0); Mean Corpuscular Volume 83.2 fL (80-98); Mean Platelet Volume 11.3 fL (9.4-12.3); Monocytes Absolute Auto 0.7 X10*3/uL (0.1-1.2); Monocytes Percent Auto 4.7 % (2-11); Neutrophils Absolute Auto 11.6 X10*3/uL (2.0-8.3); Neutrophils Percent Auto 82.4 % (45-73); Platelet Count 259 X10*3/uL (160-400); Red Blood Count 4.69 X10*6/uL (4.20-5.50); Red Cell Distribution Width 15.3 % (11.0-16.0); White Blood Count 14.1 X10*3/uL (4.8-10.8)
[2021-02-27 06:47] LABS: Anion Gap 11 (12-20); Blood Urea Nitrogen 7 mg/dL (9-16); Calcium 8.6 mg/dL (8.4-10.2); Carbon Dioxide 23 mmol/L (22-29); Chloride 109 mmol/L (96-108); Creatinine Clr Calc Pharmacy 116.7; Estimated Glomerular Filt Rate > 60; Glucose Random 111 mg/dL (60-115); Potassium 4.3 mmol/L (3.3-5.1); Sodium 139 mmol/L (135-145)
[2021-02-27 08:00] VITALS: BP 102/61; PULSE 75; RESP 18; TEMP 36.9; O2SAT 98
[2021-02-27] MEDS: Famotidine/PF 20 MG/2 ML VIAL IVPUSH (09:05)
--- NOTE | 2021-02-27 13:52 | HO.POSTANES ---
Post Anesthesia Evaluation Post Anesthesia Evaluation Vital Signs: Vital Signs Temp Pulse Resp BP Pulse Ox 02/27/21 08:00 98.5 F 75 18 102/61 98 02/27/21 03:07 97.3 F 56 16 101/56 L 97 Anesthesia: General Endotracheal-GETA Mental Status: Awake Pain Control: Satisfactory Nausea/Vomiting: None Hydration: Adequate Anesthesia-Related Issues: No Anes. Related Issues
== END 2021-02-27 10:04 | disposition home or self-care (01) | DRG 403 ==
LOC: HO.SSSA 02-26 13:19 → HO.S3 02-26 13:28
PROVIDERS: Physician Assistant; Admitting Provider Surgery; PCP Internal Medicine; Visit Provider Surgery
PROC: (CPT 43845; principal; 2021-02-26 10:10)
DX: E66.01 Morbid (severe) obesity due to excess calories (principal); K76.0 Fatty (change of) liver, not elsewhere classified; K44.0 Diaphragmatic hernia with obstruction, without gangrene; Z68.38 Body mass index [BMI] 38.0-38.9, adult; K21.9 Gastro-esophageal reflux disease without esophagitis; K66.0 Peritoneal adhesions (postprocedural) (postinfection); F41.9 Anxiety disorder, unspecified; K58.9 Irritable bowel syndrome, unspecified; R73.03 Prediabetes; Z20.822 Contact with and (suspected) exposure to COVID-19; Z87.891 Personal history of nicotine dependence; Z79.899 Other long term (current) drug therapy
CPT/HCPCS: 36415; 80048; 80053; 80061; 83036; 83525; 84443; 85014; 85018; 85025; 85610; 85730; 86140; 86850; 86900; 86901; 87635; 88307; 88342; 99024; A4649; J0131; J0690; J1100; J1170; J2250; J2370; J2405

== ENCOUNTER → 2021-03-05 11:27 | Outpatient (BNVA) | payer OTHER, SELFPAY | PROVIDERS: PCP Internal Medicine; Visit Provider Physician Assistant ==

== ENCOUNTER → 2021-03-25 08:13 | Outpatient (BNVA) | payer OTHER, SELFPAY | PROVIDERS: PCP Internal Medicine; Referring Provider Internal Medicine; Visit Provider Physician Assistant | DX: E66.9 Obesity, unspecified (principal); Z68.34 Body mass index [BMI] 34.0-34.9, adult | CPT/HCPCS: 99212 ==

== ENCOUNTER → 2021-04-27 07:43 | Outpatient (BNVA) | payer OTHER, SELFPAY | PROVIDERS: PCP Internal Medicine; Visit Provider Surgery | DX: E66.9 Obesity, unspecified (principal); Z68.33 Body mass index [BMI] 33.0-33.9, adult | CPT/HCPCS: 99212 ==

== ENCOUNTER → 2021-06-04 08:05 | Outpatient (BNVA) | payer OTHER, SELFPAY | PROVIDERS: PCP Internal Medicine; Visit Provider Physician Assistant Surgical | DX: Z98.84 Bariatric surgery status (principal) | CPT/HCPCS: 99212 ==

== ENCOUNTER → 2021-06-22 08:30 | Outpatient (BNVA) | payer OTHER, SELFPAY | PROVIDERS: PCP Internal Medicine; Visit Provider Physician Assistant Surgical ==

== ENCOUNTER → 2021-07-22 08:08 | Outpatient (BNVA) | payer OTHER, SELFPAY | PROVIDERS: PCP Internal Medicine; Visit Provider Physician Assistant Surgical ==

== ENCOUNTER → 2021-09-17 10:28 | Outpatient (BNVA) | payer OTHER, SELFPAY | PROVIDERS: PCP Internal Medicine; Visit Provider Physician Assistant Surgical | DX: R10.9 Unspecified abdominal pain (principal); Z98.84 Bariatric surgery status ==

== ENCOUNTER 2021-09-17 11:19 | Inpatient (IN) | payer OTHER, SELFPAY ==
[2021-09-17] VITALS (12 sets, daily range): BP systolic 99–120; BP diastolic 39–79; PULSE 73–124; RESP 14–20; TEMP 36.1–36.7; O2SAT 94–100; BMI 28.1
--- NOTE | ~2021-09-17 | CT_ITS ---
EXAMINATION: CT ABDOMEN AND PELVIS WITHOUT CONTRAST CLINICAL INFORMATION: Epigastric pain. Status post bariatric surgery 2020 COMPARISON: Upper GI examination and abdominal ultrasound on December 23, 2020 TECHNIQUE: Multidetector volumetric imaging was performed from the superior aspect of the liver through the pubic symphysis. Sagittal and coronal reformatted images were obtained on the technologist's workstation. This CT examination was performed using dose optimization techniques as appropriate, variously including the following: *Automated exposure control *Adjustment of mA and/or kV according to patient size (this includes techniques or standardized protocols for targeted exams where dose is matched to indication/reason for exam; i.e. extremities or head) *Use of iterative reconstruction technique DLP: 605 mGy-cm FINDINGS: LUNG BASES: The lung bases appear unremarkable. No pleural or pericardial effusion. LIVER, GALLBLADDER, AND BILIARY TREE: The liver is normal in size, shape, and attenuation. No focal hepatic lesion or biliary ductal dilatation is present. There is a small amount of fluid seen about the inferior lateral aspect of the liver. Its difficult to tell if some this is subcapsular or not. Status post cholecystectomy. PANCREAS: Unremarkable. No abnormal mass or peripancreatic inflammatory change. SPLEEN: Unremarkable. ADRENAL GLANDS: Unremarkable. KIDNEYS AND URETERS: The kidneys are normal in size, shape, and attenuation. No hydronephrosis or hydroureter seen. No perinephric stranding. There are 3 mm and 2 mm nonobstructing left upper collecting system calculi. BLADDER: Unremarkable. GASTROINTESTINAL TRACT: No dilated loops of large or small bowel are present. No free air is identified. There is some free fluid seen about the right abdomen and pelvis with some about the left pelvis as well. Status post gastric surgery. There is a single wall thickening as well as adjacent fat stranding with enlargement of the appendix containing multiple appendicoliths and with the appendix measuring 1.4 cm in diameter consistent with acute appendicitis. ABDOMINAL WALL: No significant hernia is appreciated. LYMPH NODES: No lymphadenopathy appreciated. VASCULAR: No abdominal aortic aneurysm. PELVIC VISCERA: Small amount of free fluid. OSSEOUS STRUCTURES: Unremarkable. CT/CT abdomen pelvis wo con IMPRESSION: Acute appendicitis. Small amount of free fluid. Left nephrolithiasis without evidence of obstructive uropathy. Fleischner guidelines were followed.
[2021-09-17 12:13] LABS: Appearance Urine HAZY; Color Urine YELLOW; Glucose Urine UA NEG (NEG); Leukocyte Esterase Urine 3+ (NEG); Nitrite Urine NEG (NEG); PH 5.5 (5.0-8.0); UACC Culture Trigger YES; Urine Blood 3+ (NEG); Urine Ketones NEG (NEG); Urine Protein 1+ MG/DL (NEG-TRACE)
[2021-09-17 12:16] LABS: MANUAL DIFF FLAG NO; UPreg QC Valid YES; Urine Pregnancy NEGATIVE (NEGATIVE)
[2021-09-17 12:19] LABS: Basophils Percent Auto 0.2 % (0-2); Eosinophils Percent Auto 0.2 % (0-4); Hematocrit 43.4 % (37.0-47.0); Imm Gran Abs Auto 0.06 X10*3/uL (0.00-0.03); Imm Gran Pct Auto 0.4 % (0.0-0.4); Lymphocytes Absolute Auto 2.2 X10*3/uL (1.2-4.9); Lymphocytes Percent Auto 13.9 % (20-40); Mean Corpuscular HGB Conc 32.3 g/dl (31.0-35.0); Mean Corpuscular Hemoglobin 28.4 pg (27.0-33.0); Mean Platelet Volume 10.4 fL (9.4-12.3); Monocytes Percent Auto 6.1 % (2-11); Neutrophils Absolute Auto 12.4 x10*3/uL (2.0-8.3); Neutrophils Percent Auto 79.2 % (45-73); Platelet Count 275 X10*3/uL (160-400); Red Blood Count 4.93 X10*6/uL (4.20-5.50); Red Cell Distribution Width 13.9 % (11.0-16.0); White Blood Count 15.6 X10*3/uL (4.8-10.8)
[2021-09-17 12:31] LABS: Bacteria Urine 1+ /LPF; Mucus Urine 2+ /LPF; RBC Urine 0-2 /HPF (0); Squamous Epithelial Cell Urine 2+ /LPF; WBC Urine 0-2 /HPF (0-4)
[2021-09-17 12:37] LABS: Alanine Aminotransferase 16 U/L (0-31); Alkaline Phosphatase 75 U/L (39-117); Anion Gap 10 (12-20); Aspartate Amino Transferase 13 U/L (5-31); Bilirubin Direct 0.4 mg/dL (0.0-0.5); Bilirubin Total 0.8 mg/dL (0.0-1.0); Blood Urea Nitrogen 12 mg/dL (9-16); Calcium 9.1 mg/dL (8.4-10.2); Carbon Dioxide 28 mmol/L (22-29); Chloride 105 mmol/L (96-108); Creatinine Clr Calc Pharmacy 100.1; Estimated Glomerular Filt Rate > 60; Glucose Random 90 mg/dL (60-115); Lipase 6 U/L (8-78); Potassium 4.2 mmol/L (3.3-5.1); Sodium 139 mmol/L (135-145); Total Protein 6.9 g/dL (6.5-8.0)
--- NOTE | 2021-09-17 13:00 | ED_ITS ---
HPI - Abdominal Pain General Chief Complaint: Abdominal Pain Stated Complaint: abd pain Time Seen by Provider: 09/17/21 12:43 Source: patient Mode of arrival: ambulatory Limitations: no limitations History of Present Illness HPI narrative: Patient comes to emergency room complaining of abdominal pain. Patient states his epigastric radiating towards the right upper quadrant. Patient has had pain for approximately 5 days but over the last 3 days, the pain has been gradually been getting worse. Patient states that is unrelated to meals. Patient denies fever chills, no vomiting or diarrhea. Patient has had abdominal issues in the past, she has tested for H pylori positive before. This morning patient was seen by bariatric surgery, she was sent to the emergency room for further evaluation. Related Data Previous Rx's Medication Instructions Recorded [id number] 45 mg-folic 1 cap PO DAILY #20 cap 06/04/21 acid 800 mcg-vit K 120 mcg capsule (Bariatric Multivitamins) Allergies Allergy/AdvReac Type Severity Reaction Status Date / Time seafood Allergy Severe Anaphylaxis Verified 09/17/21 10:35 Review of Systems Review of Systems Constitutional : No Weight loss, No Fever, No Chills, No Night Sweats, No Fatigue, No Malaise ENT/Mouth : No Hearing loss, No Ear Pain, No Nasal Congestion, No Sinus Pain, No Hoarseness, No sore throat, No Rhinorrhea, No Swallowing Difficulty Eyes: No Eye Pain, No Swelling, No Redness, No Foreign Body, No Discharge, No Vision Changes Cardiovascular : No Chest Pain, No SOB, No Dyspnea on Exertion, No Orthopnea, No Edema, No Palpitations Respiratory : No Cough, No Sputum, No Wheezing, No Smoke Exposure, No Dyspnea Gastrointestinal : Complaining of nausea No Vomiting, No Diarrhea, No Constipation, complaining of epigastric pain No Hematochezia, No Melena Genitourinary : no irregular bleeding, No Dysuria, No Urinary Frequency, No Hematuria, No Urinary Incontinence, No Urgency, No Flank Pain, No Urinary Flow Changes, No Hesitancy Musculoskeletal : No joint pain, No Myalgias, No Joint Swelling Skin : No Skin Lesions, No rash Neuro : No Weakness, No Numbness, No Paresthesias, No Loss of Consciousness, No Dizziness, No Headache Psych : No Anxiety/Panic, No Depression, No SI/HI/AH/VH, No Social Issues, Heme/Lymph: No Bruising, No Bleeding,No Lymphadenopathy Endocrine : No Polyuria, No Polydipsia, No Temperature Intolerance PMFSH Past Medical History Medical History Anxiety COVID-19 vaccine series completed GERD (gastroesophageal reflux disease) H. pylori infection Hyperinsulinemia IBS (irritable bowel syndrome) Kidney stones Morbid obesity Prediabetes Steatosis, liver Vitamin B12 deficiency Vitamin D deficiency Surgical History History of sleeve gastrectomy Hx of cholecystectomy Hx of knee surgery Hx of tubal ligation Family History Family History Mother Diabetes Hypertension Cirrhosis Father Thyroid crisis IBS (irritable bowel syndrome) Sister No problems noted. Sister No problems noted. Brother Thyroid crisis Diabetes Daughter No problems noted. Daughter Muscular dystrophy Daughter Prediabetes Social History Social History Are you a primary childcare director to a significant other at home: No Do you presently have visiting nurse or other home services: No Alcohol intake: former Patient Tobacco Use Status: Former Tobacco user Quit Date: 3 yrs ago Tobacco use type: Cigarette Use of substances other than those prescribed or required for medical reasons: No Advance Directives: No Advance Directives Information Provided: No Physical Exam ED Vital Signs: Vital Signs - 24 hr 09/17/21 11:26 09/17/21 13:28 Temperature 98 F Pulse Rate 88 80 Respiratory Rate 18 20 Blood Pressure 120/78 105/79 Pulse Oximetry 100 100 BMI result Body Mass Index 28.1 Course Course Course Narrative: Patient complaining of significant pain, patient will be given IV fluids, Zofran and morphine. CT scan pending. I discussed with the patient that patient may need an ultrasound. I discussed with the patient that she has acute appendicitis. I discussed the patient with Dr. Ferrera, patient being admitted MDM - Abdominal Pain Lab Data Result diagrams: 09/17/21 12:03 09/17/21 12:03 Labs: Lab Results 09/17/21 09/17/21 09/17/21 Range/Units 12:03 12:03 12:03 WBC 15.6 H (4.8-10.8) X10*3/uL RBC 4.93 (4.20-5.50) X10*6/uL Hgb 14.0 (12.0-16.0) g/dl Hct 43.4 (37.0-47.0) % MCV 88.0 (80.0-98.0) fL MCH 28.4 (27.0-33.0) pg MCHC 32.3 (31.0-35.0) g/dl RDW 13.9 (11.0-16.0) % Plt Count 275 (160-400) X10*3/uL MPV 10.4 (9.4-12.3) fL Immature Gran % (Auto) 0.4 (0.0-0.4) % Neut % (Auto) 79.2 H (45-73) % Lymph % (Auto) 13.9 L (20-40) % [place] % (Auto) 6.1 (2-11) % Eos % (Auto) 0.2 (0-4) % Baso % (Auto) 0.2 (0-2) % Lymph # (Auto) 2.2 (1.2-4.9) X10*3/uL [place] # (Auto) 1.0 (0.1-1.2) X10*3/uL Eos # (Auto) 0.0 (0.0-0.4) X10*3/uL Baso # (Auto) 0.0 (0.0-0.2) X10*3/uL Abs Immat Gran (auto) 0.06 H (0.00-0.03) X10*3/uL Absolute Neuts (auto) 12.4 H (2.0-8.3) x10*3/uL Absolute Nucleated RBC 0.000 (0.0-0.012) X10*3/uL Nucleated RBC % (auto) 0.0 (0.0-0.2) /100WBC Sodium 139 (135-145) mmol/L Potassium 4.2 (3.3-5.1) mmol/L Chloride 105 (96-108) mmol/L Carbon Dioxide 28 (22-29) mmol/L Anion Gap 10 L (12-20) BUN 12 (9-16) mg/dL Creatinine 0.73 (0.5-1.4) mg/dL Estim Creat Clear Calc 100.1 Estimated GFR > 60 Random Glucose 90 (60-115) mg/dL Calcium 9.1 (8.4-10.2) mg/dL Total Bilirubin 0.8 (0.0-1.0) mg/dL Direct Bilirubin 0.4 (0.0-0.5) mg/dL AST 13 (5-31) U/L ALT 16 (0-31) U/L Alkaline Phosphatase 75 (39-117) U/L Total Protein 6.9 (6.5-8.0) g/dL Albumin 4.0 (3.5-5.0) g/dL Lipase 6 L (8-78) U/L Urine Color YELLOW Urine Appearance HAZY Urine pH 5.5 (5.0-8.0) Ur Specific Bartlett 1.010 (1.005-1.025) Urine Protein 1+ H (NEG-TRACE) MG/DL Urine Glucose (UA) NEG (NEG) MG/DL Urine Ketones NEG (NEG) MG/DL Urine Blood 3+ H (NEG) Urine Nitrite NEG (NEG) Ur Leukocyte Esterase 3+ H (NEG) Urine RBC 0-2 (0) /HPF Urine WBC 0-2 (0-4) /HPF Ur Squamous Epith Cells 2+ /LPF Urine Bacteria 1+ /LPF Urine Mucus 2+ /LPF Urine Test (NEGATIVE) 09/17/21 Range/Units 12:03 WBC (4.8-10.8) X10*3/uL RBC (4.20-5.50) X10*6/uL Hgb (12.0-16.0) g/dl Hct (37.0-47.0) % MCV (80.0-98.0) fL MCH (27.0-33.0) pg MCHC (31.0-35.0) g/dl RDW (11.0-16.0) % Plt Count (160-400) X10*3/uL MPV (9.4-12.3) fL Immature Gran % (Auto) (0.0-0.4) % Neut % (Auto) (45-73) % Lymph % (Auto) (20-40) % [place] % (Auto) (2-11) % Eos % (Auto) (0-4) % Baso % (Auto) (0-2) % Lymph # (Auto) (1.2-4.9) X10*3/uL [place] # (Auto) (0.1-1.2) X10*3/uL Eos # (Auto) (0.0-0.4) X10*3/uL Baso # (Auto) (0.0-0.2) X10*3/uL Abs Immat Gran (auto) (0.00-0.03) X10*3/uL Absolute Neuts (auto) (2.0-8.3) x10*3/uL Absolute Nucleated RBC (0.0-0.012) X10*3/uL Nucleated RBC % (auto) (0.0-0.2) /100WBC Sodium (135-145) mmol/L Potassium (3.3-5.1) mmol/L Chloride (96-108) mmol/L Carbon Dioxide (22-29) mmol/L Anion Gap (12-20) BUN (9-16) mg/dL Creatinine (0.5-1.4) mg/dL Estim Creat Clear Calc Estimated GFR Random Glucose (60-115) mg/dL Calcium (8.4-10.2) mg/dL Total Bilirubin (0.0-1.0) mg/dL Direct Bilirubin (0.0-0.5) mg/dL AST (5-31) U/L ALT (0-31) U/L Alkaline Phosphatase (39-117) U/L Total Protein (6.5-8.0) g/dL Albumin (3.5-5.0) g/dL Lipase (8-78) U/L Urine Color Urine Appearance Urine pH (5.0-8.0) Ur Specific [place] (1.005-1.025) Urine Protein (NEG-TRACE) MG/DL Urine Glucose (UA) (NEG) MG/DL Urine Ketones (NEG) MG/DL Urine Blood (NEG) Urine Nitrite (NEG) Ur Leukocyte Esterase (NEG) Urine RBC (0) /HPF Urine WBC (0-4) /HPF Ur Squamous Epith Cells /LPF Urine Bacteria /LPF Urine Mucus /LPF Urine Test NEGATIVE (NEGATIVE) Imaging Data CT scan - abdomen: Radiologist's impression: FINDINGS: LUNG BASES: The lung bases appear unremarkable. No pleural or pericardial effusion.? LIVER, GALLBLADDER, AND BILIARY TREE: The liver is normal in size, shape, and attenuation. No focal hepatic lesion or biliary ductal dilatation is present. There is a small amount of fluid seen about the inferior lateral aspect of the liver. Its difficult to tell if some this is subcapsular or not. Status post cholecystectomy.? PANCREAS: Unremarkable. No abnormal mass or peripancreatic inflammatory change. SPLEEN: Unremarkable.? ADRENAL GLANDS: Unremarkable.? KIDNEYS AND URETERS: The kidneys are normal in size, shape, and attenuation. No hydronephrosis or hydroureter seen. No perinephric stranding. There are 3 mm and 2 mm nonobstructing left upper collecting system calculi. BLADDER: Unremarkable.? GASTROINTESTINAL TRACT: No dilated loops of large or small bowel are present. No free air is identified. There is some free fluid seen about the right abdomen and pelvis with some about the left pelvis as well. Status post gastric surgery. There is a single wall thickening as well as adjacent fat stranding with enlargement of the appendix containing multiple appendicoliths and with the appendix measuring 1.4 cm in diameter consistent with acute appendicitis.? ABDOMINAL WALL: No significant hernia is appreciated.? LYMPH NODES: No lymphadenopathy appreciated. VASCULAR: No abdominal aortic aneurysm. PELVIC VISCERA: Small amount of free fluid.? OSSEOUS STRUCTURES: Unremarkable.? CT/CT abdomen pelvis wo con IMPRESSION: Acute appendicitis. ? Small amount of free fluid. ? Left nephrolithiasis without evidence of obstructive uropathy. Discharge Plan Discharge Clinical Impression: Acute appendicitis Patient Disposition: Admitted As Inpatient
[2021-09-17] MEDS: 0.9 % Sodium Chloride 1,000 ML 999 ML IVCONT (13:25)
[2021-09-17] MEDS: ondansetron HCL 4 MG/2 ML VIAL IVPUSH (13:25)
[2021-09-17] MEDS: Morphine Sulfate 4 MG/ML CARTRIDGE IVPUSH (13:26)
--- NOTE | 2021-09-17 14:42 | PM.HPGS ---
History of Present Illness History of Present Illness Date of Service: 09/17/21 Chief complaint: abd pain Narrative: Ana Alexander is a 41 year old female presenting with complaints of abdominal pain of 4 days duration. The pain started in the epigastric region but is now localized more to the right lower quadrant. She reports nausea without vomiting. She denies fever or chills. The pain has been increasing in severity and is now 10/10. She reports previous gastric sleeve gastrectomy 1 year ago and tolerated the surgery well. Patient presented to the emergency department was found to have an elevated WBC. CT of the abdomen and pelvis revealed a thickened and enlarged appendix multiple fecaliths suggestive of acute appendicitis. Review of Systems Constitutional: Constitutional: Denies chills, Denies fever(s), Denies headache(s) and Denies poor appetite ENT: Denies dizziness and Denies headache(s) Cardiovascular: Cardiovascular: Denies chest pain, Denies rapid heart rate, Denies palpitations and Denies slow heart rate Respiratory: Respiratory: Denies chest congestion, Denies cough, Denies pain on inspiration and Denies wheezing Gastrointestinal: Gastrointestinal: Reports abdominal pain, Denies bloating, Denies change in stool character, Denies constipation, Denies diarrhea, Reports nausea, Denies vomiting and Denies hematemesis Musculoskeletal: Musculoskeletal: Denies back pain, Denies arthralgias, Denies joint swelling and Denies numbness Integumentary/Breasts: Skin/Breast: Denies change in pigmentation, Denies erythema and Denies rash Neurologic: Denies dizziness, Denies headache(s) and Denies numbness Psychiatric: Psychiatric: Denies anxiety and Denies depression Endocrine: Endocrine: Denies palpitations Hematologic/Lymphatic: Hematologic/Lymphatic: Denies easy bleeding, Denies easy bruising and Denies lymphadenopathy Allergic/Immunologic: Allergic/Immunologic: Denies wheezing PMFSH Past Medical History Medical History Anxiety COVID-19 vaccine series completed GERD (gastroesophageal reflux disease) H. pylori infection Hyperinsulinemia IBS (irritable bowel syndrome) Kidney stones Morbid obesity Prediabetes Steatosis, liver Vitamin B12 deficiency Vitamin D deficiency Family History Family History Mother Diabetes Hypertension Cirrhosis Father Thyroid crisis IBS (irritable bowel syndrome) Sister No problems noted. Sister No problems noted. Brother Thyroid crisis Diabetes Daughter No problems noted. Daughter Muscular dystrophy Daughter Prediabetes Surgical History Surgical History History of sleeve gastrectomy Hx of cholecystectomy Hx of knee surgery Hx of tubal ligation Social History Social History Are you a primary acute care registered nurse to a significant other at home: No Do you presently have visiting nurse or other home services: No Alcohol intake: former Patient Tobacco Use Status: Former Tobacco user Quit Date: 3 yrs ago Tobacco use type: Cigarette Use of substances other than those prescribed or required for medical reasons: No Advance Directives: No Advance Directives Information Provided: No Meds Allergies Allergy/AdvReac Type Severity Reaction Status Date / Time seafood Allergy Severe Anaphylaxis Verified 09/17/21 10:35 Active Medications: Current Medications Piperacillin Sod/Tazobactam (Sod 3.375 gm/ Sodium Chloride) 50 mls @ 100 mls/hr IV ONCE ONE Stop: 09/17/21 15:02 Pharmacy Consult (Consult Rx Perform Med Rec) 1 each MISCELLANE ONCE PRN PRN Reason: Consult order Physical Exam Vital Signs: Vital Signs: Last Vital Signs Temp 98 F 09/17/21 11:26 Pulse 80 09/17/21 13:28 Resp 20 09/17/21 13:28 BP 105/79 09/17/21 13:28 Pulse Ox 100 09/17/21 13:28 BMI result Body Mass Index 28.1 Const: General: cooperative, comfortable and well developed Nutritional Appearance: well nourished Orientation/consciousness: patient oriented x3 Eyes: Sclerae: sclerae normal EOM: EOMs intact bilaterally Neck: Neck: Yes normal visual inspection Resp: Effort & Inspection: normal respiratory effort, no cough, no respiratory distress and no stridor Cardio: Jugular venous distension: no JVD GI: Inspection: Yes normal to inspection Palpation (GI): Soft to palpation, Tenderness to palpation present (GI), Guarding due to palpation present (GI) and Rigid due to palpation Percussion: Yes dullness to percussion Auscultation: normal bowel sounds Rectal Exam - Female: deferred Skin: General skin exam: dry skin Rashes: no rashes Neuro: General: patient oriented x3 and no focal motor deficits Extrem: General: Yes full ROM and Yes no clubbing, cyanosis or edema Psych: Appearance: grossly normal Results Results Labs: Short CBC 09/17/21 Range/Units 12:03 WBC 15.6 H (4.8-10.8) X10*3/uL Hgb 14.0 (12.0-16.0) g/dl Hct 43.4 (37.0-47.0) % Plt Count 275 (160-400) X10*3/uL BMP 09/17/21 12:03 Sodium 139 Potassium 4.2 Chloride 105 Carbon Dioxide 28 BUN 12 Creatinine 0.73 Calcium 9.1 Liver Function 09/17/21 Range/Units 12:03 Total Bilirubin 0.8 (0.0-1.0) mg/dL Direct Bilirubin 0.4 (0.0-0.5) mg/dL AST 13 (5-31) U/L ALT 16 (0-31) U/L Alkaline Phosphatase 75 (39-117) U/L Albumin 4.0 (3.5-5.0) g/dL Urine 09/17/21 09/17/21 Range/Units 12:03 12:03 Urine Color YELLOW Urine Appearance HAZY Urine pH 5.5 (5.0-8.0) Ur Specific [place] 1.010 (1.005-1.025) Urine Protein 1+ H (NEG-TRACE) MG/DL Urine Glucose (UA) NEG (NEG) MG/DL Urine Test NEGATIVE (NEGATIVE) Assessment and Plan (1) Acute appendicitis: Status: Acute Plan 41-year-old female patient presenting with complaints of abdominal pain in the right lower quadrant of 4 days duration. On examination the patient is tender in the right lower quadrant with localized rebound. Pain is localized over McBurney's point. Laboratories revealed elevated WBC. Appendix is dilated with multiple fecaliths on CT. Findings are suggestive of acute appendicitis. I recommended a laparoscopic or possible open cholecystectomy. After discussion of the procedure, risks, and alternatives, she consents to a laparoscopic or possible open appendectomy. She has been added onto the operative schedule for tonight. Quality Stroke Does the patient have a stroke diagnosis?: No VTE Prior VTE?: No VTE Risk Level:: Surgical - moderate VTE Device Contraindication: N/A - Device Ordered VTE Drug Contraindication: N/A - Med Ordered Procedures Date of Service Date of Service: 09/17/21
[2021-09-17] MEDS: Piperacillin Sodium/Tazobactam 3.375 GM in 0.9 % Sodium Chloride 50 ML IV ×2 (14:57→21:01)
[2021-09-17] MEDS: HYDROmorphone HCl 1 MG/ML SYRINGE IVPUSH (14:57)
--- NOTE | 2021-09-17 15:01 | PHA.MEDREC ---
Pharmacy Consult ? Medication Reconciliation Pharmacy has completed the medication reconciliation. Irma Conklin
--- NOTE | 2021-09-17 15:23 | PC.NURSE ---
Dr Ferrera to bedside for eval and plan for surgery. Pt medicated for persistent abd/flank pain
[2021-09-17] MEDS: Lactated Ringers 1,000 ML 100 ML IVCONT (15:33)
[2021-09-17] MEDS: HYDROmorphone HCl 0.5 MG/0.5 ML SYRINGE IVPUSH ×2 (16:09→21:00)
--- NOTE | 2021-09-17 16:34 | PC.NURSE ---
report to Lupe in PACU
[2021-09-17 17:01] LABS: COVID-19 Test Negative (Negative)
--- NOTE | 2021-09-17 17:09 | HO.ANESPROP2 ---
HPI - Anesthesia Eval Consult details Narrative: 41 F for appendectomy PMFSH Active Problems Active Problems: All Active Problems (Updated 09/17/21 @ 14:32 by Smiley Davila MD) Acute appendicitis (Acute) Abdominal pain (Acute) Diaphragmatic hernia (Acute) Status post repair of paraesophageal diaphragmatic hernia (Acute) S/P laparoscopic sleeve gastrectomy (Acute) Obesity (Acute) BMI 38.0-38.9,adult (Acute) Abdominal adhesions (Acute) BMI 34.0-34.9,adult (Acute) BMI 33.0-33.9,adult (Acute) Obesity (BMI 30.0-34.9) (Acute) Steatosis, liver (Acute) Hyperinsulinemia (Acute) Prediabetes (Acute) IBS (irritable bowel syndrome) (Acute) GERD (gastroesophageal reflux disease) (Acute) Morbid obesity (Acute) Past Medical History Medical History Anxiety COVID-19 vaccine series completed GERD (gastroesophageal reflux disease) H. pylori infection Hyperinsulinemia IBS (irritable bowel syndrome) Kidney stones Morbid obesity Prediabetes Steatosis, liver Vitamin B12 deficiency Vitamin D deficiency Family History Family History Mother Diabetes Hypertension Cirrhosis Father Thyroid crisis IBS (irritable bowel syndrome) Sister No problems noted. Sister No problems noted. Brother Thyroid crisis Diabetes Daughter No problems noted. Daughter Muscular dystrophy Daughter Prediabetes Family history of problems with anesthesia: No Surgical History Surgical History History of sleeve gastrectomy Hx of cholecystectomy Hx of knee surgery Hx of tubal ligation History of Problems with Anesthesia: No Social History Social History Are you a primary spiritual care coordinator to a significant other at home: No Do you presently have visiting nurse or other home services: No Alcohol intake: former Patient Tobacco Use Status: Former Tobacco user Quit Date: 3 yrs ago Tobacco use type: Cigarette Use of substances other than those prescribed or required for medical reasons: No Advance Directives: No Advance Directives Information Provided: No Meds Allergies Allergy/AdvReac Type Severity Reaction Status Date / Time seafood Allergy Severe Anaphylaxis Verified 09/17/21 10:35 morphine AdvReac Abdominal Verified 09/17/21 16:11 Pain Active Medications: Current Medications Hydromorphone HCl (Hydromorphone Hcl 0.5 Mg/0.5 Ml Syringe) 0.5 mg IVPUSH Q2H PRN; Protocol PRN Reason: Pain, Severe (Pain Scale 7-10) Last Admin: 09/17/21 16:09 Dose: 0.5 mg Documented by: Lactated Ringer's (Lr) 1,000 mls @ 100 mls/hr IVCONT .Q10H J CARLOS Last Admin: 09/17/21 15:33 Dose: 100 mls/hr Documented by: Ondansetron HCl (Ondansetron Hcl 4 Mg/2 Ml Vial) 4 mg IVPUSH QID PRN PRN Reason: Nausea Pharmacy Consult (Consult Rx Perform Med Rec) 1 each MISCELLANE ONCE PRN PRN Reason: Consult order Exam Exam Date and Time: September 17, 20211708 Height,Weight and Vital Signs: Height 5 ft 4 in Weight 74.389 kg Last Vital Signs Temp 98 F 09/17/21 11:26 Pulse 79 09/17/21 15:01 Resp 20 09/17/21 15:01 BP 111/63 09/17/21 15:01 Pulse Ox 98 09/17/21 15:01 Pertinent Lab Results Pertinent Lab Results: Laboratory Tests 09/17/21 09/17/21 09/17/21 12:03 12:03 12:03 WBC 15.6 H RBC 4.93 Hgb 14.0 Hct 43.4 MCV 88.0 MCH 28.4 MCHC 32.3 RDW 13.9 Plt Count 275 MPV 10.4 Immature Gran % (Auto) 0.4 Neut % (Auto) 79.2 H Lymph % (Auto) 13.9 L [place] % (Auto) 6.1 Eos % (Auto) 0.2 Baso % (Auto) 0.2 Lymph # (Auto) 2.2 [place] # (Auto) 1.0 Eos # (Auto) 0.0 Baso # (Auto) 0.0 Abs Immat Gran (auto) 0.06 H Absolute Neuts (auto) 12.4 H Absolute Nucleated RBC 0.000 Nucleated RBC % (auto) 0.0 Sodium 139 Potassium 4.2 Chloride 105 Carbon Dioxide 28 Anion Gap 10 L BUN 12 Creatinine 0.73 Estim Creat Clear Calc 100.1 Estimated GFR > 60 Random Glucose 90 Calcium 9.1 Total Bilirubin 0.8 Direct Bilirubin 0.4 AST 13 ALT 16 Alkaline Phosphatase 75 Total Protein 6.9 Albumin 4.0 Lipase 6 L Urine Color YELLOW Urine Appearance HAZY Urine pH 5.5 Ur Specific [place] 1.010 Urine Protein 1+ H Urine Glucose (UA) NEG Urine Ketones NEG Urine Blood 3+ H Urine Nitrite NEG Ur Leukocyte Esterase 3+ H Urine RBC 0-2 Urine WBC 0-2 Ur Squamous Epith Cells 2+ Urine Bacteria 1+ Urine Mucus 2+ Urine Test COVID-19 (FACUNDO) COVID-19 Clin Com Blood Type Antibody Screen 09/17/21 09/17/21 09/17/21 12:03 15:26 16:42 WBC RBC Hgb Hct MCV MCH MCHC RDW Plt Count MPV Immature Gran % (Auto) Neut % (Auto) Lymph % (Auto) [place] % (Auto) Eos % (Auto) Baso % (Auto) Lymph # (Auto) [place] # (Auto) Eos # (Auto) Baso # (Auto) Abs Immat Gran (auto) Absolute Neuts (auto) Absolute Nucleated RBC Nucleated RBC % (auto) Sodium Potassium Chloride Carbon Dioxide Anion Gap BUN Creatinine Estim Creat Clear Calc Estimated GFR Random Glucose Calcium Total Bilirubin Direct Bilirubin AST ALT Alkaline Phosphatase Total Protein Albumin Lipase Urine Color Urine Appearance Urine pH Ur Specific [place] Urine Protein Urine Glucose (UA) Urine Ketones Urine Blood Urine Nitrite Ur Leukocyte Esterase Urine RBC Urine WBC Ur Squamous Epith Cells Urine Bacteria Urine Mucus Urine Test NEGATIVE COVID-19 (FACUNDO) Negative COVID-19 Clin Com See Note Blood Type O Positive Antibody Screen NEGATIVE Assessment and Plan Final Anesthetic Review Family History of Problems with Anesthesia: No History of Problems with Anesthesia: No
--- NOTE | 2021-09-17 17:19 | P.CONAN_ITS ---
[facility] Active Problems Active Problems: All Active Problems (Updated 09/17/21 @ 14:32 by Smiley Davila MD) Acute appendicitis (Acute) Abdominal pain (Acute) Diaphragmatic hernia (Acute) Status post repair of paraesophageal diaphragmatic hernia (Acute) S/P laparoscopic sleeve gastrectomy (Acute) Obesity (Acute) BMI 38.0-38.9,adult (Acute) Abdominal adhesions (Acute) BMI 34.0-34.9,adult (Acute) BMI 33.0-33.9,adult (Acute) Obesity (BMI 30.0-34.9) (Acute) Steatosis, liver (Acute) Hyperinsulinemia (Acute) Prediabetes (Acute) IBS (irritable bowel syndrome) (Acute) GERD (gastroesophageal reflux disease) (Acute) Morbid obesity (Acute) Past Medical History Medical History Anxiety COVID-19 vaccine series completed GERD (gastroesophageal reflux disease) H. pylori infection Hyperinsulinemia IBS (irritable bowel syndrome) Kidney stones Morbid obesity Prediabetes Steatosis, liver Vitamin B12 deficiency Vitamin D deficiency Functional capacity: independent ambulation Patient : No Family History Family History Mother Diabetes Hypertension Cirrhosis Father Thyroid crisis IBS (irritable bowel syndrome) Sister No problems noted. Sister No problems noted. Brother Thyroid crisis Diabetes Daughter No problems noted. Daughter Muscular dystrophy Daughter Prediabetes Family history of problems with anesthesia: No Surgical History Surgical History History of sleeve gastrectomy Hx of cholecystectomy Hx of knee surgery Hx of tubal ligation History of Problems with Anesthesia: No Social History Social History Are you a primary child day care teacher to a significant other at home: No Do you presently have visiting nurse or other home services: No Alcohol intake: former Patient Tobacco Use Status: Former Tobacco user Quit Date: 3 yrs ago Tobacco use type: Cigarette Use of substances other than those prescribed or required for medical reasons: No Advance Directives: No Advance Directives Information Provided: No Meds Allergies Allergy/AdvReac Type Severity Reaction Status Date / Time seafood Allergy Severe Anaphylaxis Verified 09/17/21 10:35 morphine AdvReac Abdominal Verified 09/17/21 16:11 Pain Active Medications: Current Medications Hydromorphone HCl (Hydromorphone Hcl 0.5 Mg/0.5 Ml Syringe) 0.5 mg IVPUSH Q2H PRN; Protocol PRN Reason: Pain, Severe (Pain Scale 7-10) Last Admin: 09/17/21 16:09 Dose: 0.5 mg Documented by: Lactated Ringer's (Lr) 1,000 mls @ 100 mls/hr IVCONT .Q10H J CARLOS Last Admin: 09/17/21 15:33 Dose: 100 mls/hr Documented by: Ondansetron HCl (Ondansetron Hcl 4 Mg/2 Ml Vial) 4 mg IVPUSH QID PRN PRN Reason: Nausea Pharmacy Consult (Consult Rx Perform Med Rec) 1 each MISCELLANE ONCE PRN PRN Reason: Consult order Exam Exam Date and Time: September 17, 2021 1719 Height,Weight and Vital Signs: Height 5 ft 4 in Weight 74.389 kg Last Vital Signs Temp 97.3 F 09/17/21 17:14 Pulse 96 09/17/21 17:14 Resp 20 09/17/21 17:14 BP 119/76 09/17/21 17:14 Pulse Ox 100 09/17/21 17:14 Pertinent Lab Results Pertinent Lab Results: Laboratory Tests 09/17/21 09/17/21 09/17/21 12:03 12:03 12:03 WBC 15.6 H RBC 4.93 Hgb 14.0 Hct 43.4 MCV 88.0 MCH 28.4 MCHC 32.3 RDW 13.9 Plt Count 275 MPV 10.4 Immature Gran % (Auto) 0.4 Neut % (Auto) 79.2 H Lymph % (Auto) 13.9 L [place] % (Auto) 6.1 Eos % (Auto) 0.2 Baso % (Auto) 0.2 Lymph # (Auto) 2.2 [place] # (Auto) 1.0 Eos # (Auto) 0.0 Baso # (Auto) 0.0 Abs Immat Gran (auto) 0.06 H Absolute Neuts (auto) 12.4 H Absolute Nucleated RBC 0.000 Nucleated RBC % (auto) 0.0 Sodium 139 Potassium 4.2 Chloride 105 Carbon Dioxide 28 Anion Gap 10 L BUN 12 Creatinine 0.73 Estim Creat Clear Calc 100.1 Estimated GFR > 60 Random Glucose 90 Calcium 9.1 Total Bilirubin 0.8 Direct Bilirubin 0.4 AST 13 ALT 16 Alkaline Phosphatase 75 Total Protein 6.9 Albumin 4.0 Lipase 6 L Urine Color YELLOW Urine Appearance HAZY Urine pH 5.5 Ur Specific [place] 1.010 Urine Protein 1+ H Urine Glucose (UA) NEG Urine Ketones NEG Urine Blood 3+ H Urine Nitrite NEG Ur Leukocyte Esterase 3+ H Urine RBC 0-2 Urine WBC 0-2 Ur Squamous Epith Cells 2+ Urine Bacteria 1+ Urine Mucus 2+ Urine Test COVID-19 (FACUNDO) COVID-19 Clin Com Blood Type Antibody Screen 09/17/21 09/17/21 09/17/21 12:03 15:26 16:42 WBC RBC Hgb Hct MCV MCH MCHC RDW Plt Count MPV Immature Gran % (Auto) Neut % (Auto) Lymph % (Auto) [place] % (Auto) Eos % (Auto) Baso % (Auto) Lymph # (Auto) [place] # (Auto) Eos # (Auto) Baso # (Auto) Abs Immat Gran (auto) Absolute Neuts (auto) Absolute Nucleated RBC Nucleated RBC % (auto) Sodium Potassium Chloride Carbon Dioxide Anion Gap BUN Creatinine Estim Creat Clear Calc Estimated GFR Random Glucose Calcium Total Bilirubin Direct Bilirubin AST ALT Alkaline Phosphatase Total Protein Albumin Lipase Urine Color Urine Appearance Urine pH Ur Specific [place] Urine Protein Urine Glucose (UA) Urine Ketones Urine Blood Urine Nitrite Ur Leukocyte Esterase Urine RBC Urine WBC Ur Squamous Epith Cells Urine Bacteria Urine Mucus Urine Test NEGATIVE COVID-19 (FACUNDO) Negative COVID-19 Clin Com See Note Blood Type O Positive Antibody Screen NEGATIVE Airway Mallampati Class: II TM Dist: >3cm Neck ROM: Full Heart: RRR Lungs: CTA Assessment and Plan Final Anesthetic Review Family History of Problems with Anesthesia: No History of Problems with Anesthesia: No ASA Class: II and Emergency Final Preanesthetic Review: No Changes in Pt Med Stat, Meds/Allgs Chart Reviewed, Consent Obtained/Reviewed and Anes Risks/Benef Reviewed Patient Risk: Intermediate Procedure Risk: Low Anesthetic Plan Anesthetic Plan: GA Disposition: Standard PACU
--- NOTE | 2021-09-17 19:02 | P.OP_ITS ---
Operative Note Operative Note Date of Service: 09/17/21 Narrative: Preoperative diagnosis: Acute appendicitis Postoperative diagnosis: Same Procedure: Laparoscopic appendectomy Surgeon: Brenton Ferrera MD Physician/Ophthalmologist:Elieser Putnam MD Anesthesia: General endotracheal Indications for procedure: 41-year-old female patient presenting with complaints of abdominal pain in the right lower quadrant found to have appendicitis with multiple fecaliths. Operative findings: Large distended appendix with perforation at the base and multiple large fecaliths. Specimen: Appendix Estimated blood loss: 20 mL Complications: None Drains: Yasmany-Bolanos 7 Procedure details: Patient was brought to the OR and placed in a supine position. After administering general anesthesia the patient's abdomen was prepped with ChloraPrep and draped in a sterile fashion. A surgical time-out was called and consent confirmed. Patient received preoperative antibiotics and Venodyne boots were in place. Local anesthesia consisting of 0.5% Sensorcaine was infiltrated in periumbilical region. A 5 mm incision was made below the umbilicus and carried down through subcutaneous tissue. A Veress needle was then inserted while elevating abdominal cavity with towel clips. After a positive drop test the abdomen was insufflated to a pressure of 15 mm of mercury. The Veress needle was removed and a 5 mm trocar inserted. The camera was then inserted in the abdomen explored. A 2nd 5 mm trocars placed in the lower midline. A 12 mm trocar was then placed in the left lower quadrant. The patient was then placed in a Trendelenburg position and rotated to the left. The appendix was identified in the right lower quadrant and brought up using blunt dissecting clamps. The mesentery of the appendix was then divided using the LigaSure. The appendiceal artery was clipped with a hemoclip. Dissection was continued down to the base of the cecum. An Endo-ALEXEY stapler with a purple reload was then used to divide the appendix at the base with the cecum. A 2nd reload was needed to completely staple the base of the appendix. The appendix was then placed in Endo-Catch bag and brought out through the left lower quadrant incision. The abdomen was then copiously irrigated with saline solution and suctioned dry. Wounds were checked for hemostasis. A 7 Yasmany- Bolanos was placed in the right gutter and brought out through the lower trocar incision. This was connected to a bulb suction and secured to the abdominal wall using a 4-0 nylon suture. CO2 was then evacuated from the abdominal cavity and all trocars removed. Fascia was closed in the left lower quadrant incision using a [id number] 0 Polysorb suture. Skin was closed at all incisions using a subcuticular 4-0 Polysorb suture. Steri-Strips 2 x 2 gauze and Tegaderm were then applied. The patient tolerated the procedure well. Sponge, instrument, needle counts reported as correct. The patient was transferred to PACU in stable condition.
[2021-09-17] MEDS: 0.9 % Sodium Chloride Flush 3 ML SYRINGE IVFLUSH (23:23)
[2021-09-18] MEDS: Piperacillin Sodium/Tazobactam 3.375 GM in 0.9 % Sodium Chloride 50 ML IV ×4 (03:09→20:13)
[2021-09-18 04:10] VITALS: BP 103/62; PULSE 88; RESP 18; TEMP 36.6; O2SAT 98
[2021-09-18 07:14] VITALS: BP 104/60; PULSE 94; RESP 18; TEMP 36.1; O2SAT 97
[2021-09-18] MEDS: HYDROmorphone HCl 0.5 MG/0.5 ML SYRINGE IVPUSH ×3 (07:56→20:13)
[2021-09-18] MEDS: 0.9 % Sodium Chloride Flush 3 ML SYRINGE IVFLUSH ×2 (08:03→20:13)
[2021-09-18 08:44] LABS: MANUAL DIFF FLAG NO
[2021-09-18 08:51] LABS: Basophils Percent Auto 0.1 % (0-2); Hematocrit 40.3 % (37.0-47.0); Imm Gran Abs Auto 0.05 X10*3/uL (0.00-0.03); Imm Gran Pct Auto 0.3 % (0.0-0.4); Lymphocytes Absolute Auto 1.6 X10*3/uL (1.2-4.9); Lymphocytes Percent Auto 10.3 % (20-40); Mean Corpuscular HGB Conc 32.3 g/dl (31.0-35.0); Mean Corpuscular Hemoglobin 28.4 pg (27.0-33.0); Mean Platelet Volume 10.9 fL (9.4-12.3); Monocytes Percent Auto 6.3 % (2-11); Neutrophils Absolute Auto 12.5 x10*3/uL (2.0-8.3); Platelet Count 272 X10*3/uL (160-400); Red Blood Count 4.58 X10*6/uL (4.20-5.50); Red Cell Distribution Width 14.3 % (11.0-16.0)
--- NOTE | 2021-09-18 09:05 | PM.PNGS ---
Subjective Subjective Date of Service: 09/18/21 <Radha Mooney PA-C - Last Filed: 09/18/21 09:11> 09/18/21 <Brenton Ferrera MD - Last Filed: 09/18/21 13:06> Interval history: Feels ok. Has pain 'On insides'. Taking IV analgesics which is helping but wears off quickly. Does not have an appetite. Denies nausea. <Radha Mooney PA-C - Last Filed: 09/18/21 09:11> Physical Exam Vital Signs: Vital Signs: Last Vital Signs Temp 97 F 09/18/21 07:14 Pulse 94 09/18/21 07:14 Resp 18 09/18/21 07:14 BP 104/60 09/18/21 07:14 Pulse Ox 97 09/18/21 07:14 BMI result Body Mass Index 28.1 <Radha Mooney PA-C - Last Filed: 09/18/21 09:11> Const: General: no acute distress and alert <Radha Mooney PA-C - Last Filed: 09/18/21 09:11> Orientation/consciousness: patient oriented x3 <Radha Mooney PA-C - Last Filed: 09/18/21 09:11> Resp: Effort & Inspection: normal respiratory effort <Radha Mooney PA-C - Last Filed: 09/18/21 09:11> GI: Other: KIMANI with purulent drainage <Radha Mooney PA-C - Last Filed: 09/18/21 09:11> Inspection: No distended <Radha Mooney PA-C - Last Filed: 09/18/21 09:11> Palpation (GI): Soft to palpation, Tenderness to palpation present (GI) (incisional), no guarding and not rigid <RANJAN Peoples Last Filed: 09/18/21 09:11> Percussion: Yes normal to percussion <Radha Mooney PA-C - Last Filed: 09/18/21 09:11> Skin: General skin exam: no rashes or lesions noted <Radha Mooney PA-C - Last Filed: 09/18/21 09:11> Neuro: General: patient oriented x3 <Radha Mooney PA-C - Last Filed: 09/18/21 09:11> Extrem: General: Yes no clubbing, cyanosis or edema <Radha Mooney PA-C - Last Filed: 09/18/21 09:11> Objective Data Active Medications Hydromorphone HCl (Hydromorphone Hcl 0.5 Mg/0.5 Ml Syringe) 0.5 mg IVPUSH Q2H PRN; Protocol PRN Reason: Pain, Severe (Pain Scale 7-10) Last Admin: 09/18/21 07:56 Dose: 0.5 mg Documented by: WILY Acetaminophen (Ofirmev) 1,000 mg in 100 mls @ 400 mls/hr IV Q6H [facility] Stop: 09/20/21 14:16 Last Infusion: 09/18/21 08:49 Dose: 0 mls/hr Documented by: WILY Piperacillin Sod/Tazobactam (Sod 3.375 gm/ Sodium Chloride) 50 mls @ 100 mls/hr IV Q6H [facility] Last Infusion: 09/18/21 03:40 Dose: 0 mls/hr Documented by: LEFTY Ondansetron HCl (Ondansetron Hcl 4 Mg/2 Ml Vial) 4 mg IVPUSH QID PRN PRN Reason: Nausea Pharmacy Consult (Consult Rx Perform Med Rec) 1 each MISCELLANE ONCE PRN PRN Reason: Consult order Sodium Chloride (0.9 % Sodium Chloride Flush 3 Ml Syringe) [facility] Last Admin: 09/18/21 08:03 Dose: 3 ml Documented by: WILY Zolpidem Tartrate (Zolpidem Tartrate 5 Mg Tablet) 5 mg PO BEDTIME PRN PRN Reason: Insomnia <Radha Mooney PA-C - Last Filed: 09/18/21 09:11> Labs CBC & Chem 7: : 09/18/21 08:10 09/18/21 08:10 <Radha Mooney PA-C - Last Filed: 09/18/21 09:11> Labs: Laboratory Results - last 24 hr 09/17/21 09/17/21 09/17/21 12:03 12:03 12:03 MCV 88.0 MCH 28.4 MCHC 32.3 RDW 13.9 Plt Count 275 MPV 10.4 Immature Gran % (Auto) 0.4 Neut % (Auto) 79.2 H Lymph % (Auto) 13.9 L [place] % (Auto) 6.1 Eos % (Auto) 0.2 Baso % (Auto) 0.2 Lymph # (Auto) 2.2 [place] # (Auto) 1.0 Eos # (Auto) 0.0 Baso # (Auto) 0.0 Abs Immat Gran (auto) 0.06 H Absolute Neuts (auto) 12.4 H Absolute Nucleated RBC 0.000 Nucleated RBC % (auto) 0.0 Anion Gap 10 L Estim Creat Clear Calc 100.1 Estimated GFR > 60 Random Glucose 90 Calcium 9.1 Total Bilirubin 0.8 Direct Bilirubin 0.4 AST 13 ALT 16 Alkaline Phosphatase 75 Total Protein 6.9 Albumin 4.0 Lipase 6 L Urine Color YELLOW Urine Appearance HAZY Urine pH 5.5 Ur Specific [place] 1.010 Urine Protein 1+ H Urine Glucose (UA) NEG Urine Ketones NEG Urine Blood 3+ H Urine Nitrite NEG Ur Leukocyte Esterase 3+ H Urine RBC 0-2 Urine WBC 0-2 Ur Squamous Epith Cells 2+ Urine Bacteria 1+ Urine Mucus 2+ Urine Test COVID-19 (FACUNDO) COVID-19 [facility] Com Blood Type Antibody Screen 09/17/21 09/17/21 09/17/21 12:03 15:26 16:42 MCV MCH MCHC RDW Plt Count MPV Immature Gran % (Auto) Neut % (Auto) Lymph % (Auto) [place] % (Auto) Eos % (Auto) Baso % (Auto) Lymph # (Auto) [place] # (Auto) Eos # (Auto) Baso # (Auto) Abs Immat Gran (auto) Absolute Neuts (auto) Absolute Nucleated RBC Nucleated RBC % (auto) Anion Gap Estim Creat Clear Calc Estimated GFR Random Glucose Calcium Total Bilirubin Direct Bilirubin AST ALT Alkaline Phosphatase Total Protein Albumin Lipase Urine Color Urine Appearance Urine pH Ur Specific [place] Urine Protein Urine Glucose (UA) Urine Ketones Urine Blood Urine Nitrite Ur Leukocyte Esterase Urine RBC Urine WBC Ur Squamous Epith Cells Urine Bacteria Urine Mucus Urine Test NEGATIVE COVID-19 (FACUNDO) Negative COVID-19 L4 Mobile Com See Note Blood Type O Positive Antibody Screen NEGATIVE 09/18/21 08:10 MCV 88.0 MCH 28.4 MCHC 32.3 RDW 14.3 Plt Count 272 MPV 10.9 Immature Gran % (Auto) 0.3 Neut % (Auto) 83.0 H Lymph % (Auto) 10.3 L [place] % (Auto) 6.3 Eos % (Auto) 0.0 Baso % (Auto) 0.1 Lymph # (Auto) 1.6 [place] # (Auto) 1.0 Eos # (Auto) 0.0 Baso # (Auto) 0.0 Abs Immat Gran (auto) 0.05 H Absolute Neuts (auto) 12.5 H Absolute Nucleated RBC 0.000 Nucleated RBC % (auto) 0.0 Anion Gap Estim Creat Clear Calc Estimated GFR Random Glucose Calcium Total Bilirubin Direct Bilirubin AST ALT Alkaline Phosphatase Total Protein Albumin Lipase Urine Color Urine Appearance Urine pH Ur Specific [place] Urine Protein Urine Glucose (UA) Urine Ketones Urine Blood Urine Nitrite Ur Leukocyte Esterase Urine RBC Urine WBC Ur Squamous Epith Cells Urine Bacteria Urine Mucus Urine Test COVID-19 (FACUNDO) COVID-19 Clin Com Blood Type Antibody Screen <Radha Mooney PA-C - Last Filed: 09/18/21 09:11> Procedures Date of Service Date of Service: 09/18/21 <RANJAN Peoples Last Filed: 09/18/21 09:11> Progress Note: A&P Assessment and plan (1) Acute perforated appendicitis: Status: Acute <RANJAN Peoples Last Filed: 09/18/21 09:11> (2) S/P laparoscopic appendectomy: Status: Acute <RANJAN Peoples Last Filed: 09/18/21 09:11> Plan 41 year old admitted with acute appendicitis now POD #1 s/p lap appy. ?Large distended appendix with perforation at the base and multiple large fecaliths. Doing fairly well post op. VSS. Abd exam- tender at incision sites, KIMANI drain with purulent drainage. Cont IV zosyn, KIMANI drain. Will add PO oxycodone for pain control. Encouraged OOB/ambulation and IS use. Repeat labs in am. <RANJAN Peoples Last Filed: 09/18/21 09:11> Fall Risk Details Current Medications: Current Medications Hydromorphone HCl (Hydromorphone Hcl 0.5 Mg/0.5 Ml Syringe) 0.5 mg IVPUSH Q2H PRN; Protocol PRN Reason: Pain, Severe (Pain Scale 7-10) Last Admin: 09/18/21 07:56 Dose: 0.5 mg Documented by: Acetaminophen (Ofirmev) 1,000 mg in 100 mls @ 400 mls/hr IV Q6H [facility] Stop: 09/20/21 14:16 Last Infusion: 09/18/21 08:49 Dose: Infused Documented by: Piperacillin Sod/Tazobactam (Sod 3.375 gm/ Sodium Chloride) 50 mls @ 100 mls/hr IV Q6H [facility] Last Infusion: 09/18/21 03:40 Dose: Infused Documented by: Ondansetron HCl (Ondansetron Hcl 4 Mg/2 Ml Vial) 4 mg IVPUSH QID PRN PRN Reason: Nausea Pharmacy Consult (Consult Rx Perform Med Rec) 1 each MISCELLANE ONCE PRN PRN Reason: Consult order Sodium Chloride (0.9 % Sodium Chloride Flush 3 Ml Syringe) 3 ml IVFLUSH QSHIFT [facility] Last Admin: 09/18/21 08:03 Dose: 3 ml Documented by: Zolpidem Tartrate (Zolpidem Tartrate 5 Mg Tablet) 5 mg PO BEDTIME PRN PRN Reason: Insomnia <Radha Mooney PA-C - Last Filed: 09/18/21 09:11> Time Spent With Patient Time: Total time spent is greater than 50% in coordination of care (as documented) at patient's floor/unit and/or counseling patient: <Radha Mooney PA-C - Last Filed: 09/18/21 09:11> Time with patient: 15 - 24 minutes <Radha Mooney PA-C - Last Filed: 09/18/21 09:11> Quality Stroke Does the patient have a stroke diagnosis?: No <Radha Mooney PA-C - Last Filed: 09/18/21 09:11> VTE Prior VTE?: No <Radha Mooney PA-C - Last Filed: 09/18/21 09:11> VTE Risk Level:: Surgical - moderate <Radha Mooney PA-C - Last Filed: 09/18/21 09:11> VTE Device Contraindication: N/A - Device Ordered <Radha Mooney PA-C - Last Filed: 09/18/21 09:11> VTE Drug Contraindication: Treatment Not Indicated <Radha Mooney PA-C - Last Filed: 09/18/21 09:11>
[2021-09-18 09:06] LABS: Anion Gap 13 (12-20); Blood Urea Nitrogen 15 mg/dL (9-16); Calcium 8.5 mg/dL (8.4-10.2); Carbon Dioxide 21 mmol/L (22-29); Chloride 105 mmol/L (96-108); Estimated Glomerular Filt Rate > 60; Glucose Random 178 mg/dL (60-115); Potassium 4.1 mmol/L (3.3-5.1); Sodium 135 mmol/L (135-145)
--- NOTE | 2021-09-18 10:49 | MHC.CM.PN ---
TUAN REVIEWED, PT ADMITTED W/RUPTURED APPENDIX, CM MET W/PT WHO REPORTS SHE'S FEELING BETTER AFTER SURGERY, PY REPORTS SHE LIVES W/S.O. AND DTR, PT WORKS FOR [employer], IS INDEPENDENT W/ALL CARE, PT DENIES USE OF DME AND NO HOME SERVICES, PT VERIFIES PCP IS HANNY LEWIS AND HAS COMPLETED A HCP W/CM, PT PROVIDED W/EDUCATIONAL INFORMATION, ORIGINAL AND TWO COPIES, COPY UPLOADED TO US [employer] AND PLACED IN CHART. D/C: HOME NO SERVICES W/FAMILY FOR TRANSPORT PFIZER VACCINE X3 HEALTH CARE AGENT: HEMA PATTERSON (JUAN CARLOS) [phone] ALTERNATE: LUIS FERNANDO HERNANDEZ [phone]
[2021-09-18 11:04] VITALS: BP 97/55; PULSE 92; RESP 19; TEMP 37; O2SAT 97
--- NOTE | 2021-09-18 11:14 | MHC.CLN ---
NUTRITION PATIENT HAD GASTRIC SLEEVE SURGERY ONE YEAR AGO. DOES NOT TAKE PROTEIN SHAKES AND DOES NOT FOLLOW THERAPEUTIC DIET AT HOME. ABLE TO MAKE OWN FOOD CHOICES.
[2021-09-18] MEDS: Ketorolac Tromethamine 30 MG/ML VIAL IVPUSH ×2 (13:26→19:24)
--- NOTE | 2021-09-18 13:30 | HO.POSTANES ---
Post Anesthesia Evaluation Post Anesthesia Evaluation Vital Signs: Vital Signs Temp Pulse Resp BP Pulse Ox 09/18/21 11:04 98.6 F 92 19 97/55 L 97 09/18/21 07:14 97 F 94 18 104/60 97 09/18/21 04:10 98 F 88 18 103/62 98 Anesthesia: General Endotracheal-GETA Mental Status: Awake Pain Control: Satisfactory Nausea/Vomiting: None Hydration: Adequate Anesthesia-Related Issues: No Anes. Related Issues
[2021-09-18 14:59] VITALS: BP 83/45; PULSE 76; RESP 16; TEMP 37.1; O2SAT 96
[2021-09-18 16:21] VITALS: BP 90/57
[2021-09-18] MEDS: 0.9 % Sodium Chloride 500 ML IV (18:01)
[2021-09-18 19:15] VITALS: BP 93/57; PULSE 83; RESP 18; TEMP 36.7; O2SAT 98
[2021-09-19] VITALS (10 sets, daily range): BP systolic 90–121; BP diastolic 48–67; PULSE 82–96; RESP 16–18; TEMP 35.7–37.2; O2SAT 97–100
[2021-09-19] MEDS: Ketorolac Tromethamine 30 MG/ML VIAL IVPUSH ×4 (01:37→20:18)
[2021-09-19] MEDS: Piperacillin Sodium/Tazobactam 3.375 GM in 0.9 % Sodium Chloride 50 ML IV ×4 (02:00→20:19)
[2021-09-19] MEDS: 0.9 % Sodium Chloride Flush 3 ML SYRINGE IVFLUSH ×3 (08:21→20:19)
[2021-09-19 09:19] LABS: MANUAL DIFF FLAG NO
[2021-09-19 09:23] LABS: Basophils Percent Auto 0.1 % (0-2); Eosinophils Absolute Auto 0.1 X10*3/uL (0.0-0.4); Eosinophils Percent Auto 0.4 % (0-4); Hematocrit 36.9 % (37.0-47.0); Hemoglobin 12.1 g/dl (12.0-16.0); Imm Gran Abs Auto 0.11 X10*3/uL (0.00-0.03); Imm Gran Pct Auto 0.8 % (0.0-0.4); Lymphocytes Absolute Auto 1.4 X10*3/uL (1.2-4.9); Lymphocytes Percent Auto 10.1 % (20-40); Mean Corpuscular HGB Conc 32.8 g/dl (31.0-35.0); Mean Corpuscular Hemoglobin 28.9 pg (27.0-33.0); Mean Corpuscular Volume 88.3 fL (80.0-98.0); Mean Platelet Volume 10.8 fL (9.4-12.3); Monocytes Absolute Auto 0.7 X10*3/uL (0.1-1.2); Monocytes Percent Auto 5.3 % (2-11); Neutrophils Absolute Auto 11.6 x10*3/uL (2.0-8.3); Neutrophils Percent Auto 83.3 % (45-73); Platelet Count 228 X10*3/uL (160-400); Red Blood Count 4.18 X10*6/uL (4.20-5.50); Red Cell Distribution Width 14.5 % (11.0-16.0); White Blood Count 13.9 X10*3/uL (4.8-10.8)
--- NOTE | 2021-09-19 09:33 | PM.PNGS ---
Subjective Subjective Date of Service: 09/19/21 Interval history: Patient complains of abdominal pain although the pain does seem improved today. Denies nausea or vomiting. Physical Exam Vital Signs: Vital Signs: Last Vital Signs Temp 97.2 F 09/19/21 07:16 Pulse 96 09/19/21 07:16 Resp 18 09/19/21 07:16 BP 121/58 L 09/19/21 07:16 Pulse Ox 97 09/19/21 07:16 BMI result Body Mass Index 28.1 Const: General: healthy appearing Nutritional Appearance: well nourished Orientation/consciousness: patient oriented x3 Limitations: no limitations Resp: Effort & Inspection: normal respiratory effort GI: Other: Soft and nondistended, incision clean and intact without bleeding or discharge. KIMANI now with clear serous fluid. Skin: Other: Warm, dry, no rash Neuro: General: patient oriented x3 Extrem: Other: No edema Objective Data Active Medications Hydromorphone HCl (Hydromorphone Hcl 0.5 Mg/0.5 Ml Syringe) 0.5 mg IVPUSH Q2H PRN; Protocol PRN Reason: Pain, Severe (Pain Scale 7-10) Last Admin: 09/18/21 20:13 Dose: 0.5 mg Documented by: SANNA Acetaminophen (Ofirmev) 1,000 mg in 100 mls @ 400 mls/hr IV Q6H [facility] Stop: 09/20/21 14:16 Last Infusion: 09/19/21 08:42 Dose: 0 mls/hr Documented by: KIRSTIN Piperacillin Sod/Tazobactam (Sod 3.375 gm/ Sodium Chloride) 50 mls @ 100 mls/hr IV Q6H [facility] Last Infusion: 09/19/21 09:16 Dose: 0 mls/hr Documented by: KIRSTIN Ketorolac Tromethamine (Ketorolac Tromethamine 30 Mg/Ml Vial) 30 mg IVPUSH Q6H [facility] Last Admin: 09/19/21 08:21 Dose: 30 mg Documented by: KIRSTIN Ondansetron HCl (Ondansetron Hcl 4 Mg/2 Ml Vial) 4 mg IVPUSH QID PRN PRN Reason: Nausea Oxycodone HCl (Oxycodone Hcl Immed Release 5 Mg Tablet) 5 mg PO Q4H PRN PRN Reason: Pain, Moderate (Pain Scale 4-6 Oxycodone HCl (Oxycodone Hcl Immed Release 5 Mg Tablet) 10 mg PO Q4H PRN PRN Reason: Pain, Severe (Pain Scale 7-10) Pharmacy Consult (Consult Rx Perform Med Rec) 1 each MISCELLANE ONCE PRN PRN Reason: Consult order Sodium Chloride (0.9 % Sodium Chloride Flush 3 Ml Syringe) 3 ml IVFLUSH QSHIFT [facility] Last Admin: 09/19/21 08:21 Dose: 3 ml Documented by: KIRSTIN Zolpidem Tartrate (Zolpidem Tartrate 5 Mg Tablet) 5 mg PO BEDTIME PRN PRN Reason: Insomnia Labs CBC & Chem 7: 09/19/21 08:41 09/18/21 08:10 Labs: Laboratory Results - last 24 hr 09/19/21 08:41 MCV 88.3 MCH 28.9 MCHC 32.8 RDW 14.5 Plt Count 228 MPV 10.8 Immature Gran % (Auto) 0.8 H Neut % (Auto) 83.3 H Lymph % (Auto) 10.1 L [place] % (Auto) 5.3 Eos % (Auto) 0.4 Baso % (Auto) 0.1 Lymph # (Auto) 1.4 [place] # (Auto) 0.7 Eos # (Auto) 0.1 Baso # (Auto) 0.0 Abs Immat Gran (auto) 0.11 H Absolute Neuts (auto) 11.6 H Absolute Nucleated RBC 0.000 Nucleated RBC % (auto) 0.0 Microbiology Microbiology Results: Microbiology 09/17/21 00:00 Urine Culture - Final Urine clean catch - Urine iyer top Procedures Date of Service Date of Service: 09/19/21 Progress Note: A&P Assessment and plan (1) S/P laparoscopic appendectomy: Status: Acute (2) Acute perforated appendicitis: Status: Acute Plan 41-year-old female patient status post laparoscopic appendectomy for perforated appendicitis. Patient had multiple fecaliths within the appendix. She is now postoperative day 2 following the procedure. Wounds are clean and intact. KIMANI output is clear. Cbc remains elevated but improved slightly. Continue with the IV antibiotics. She will need p.o. antibiotics upon discharge. Will repeat CBC in a.m.. Fall Risk Details Current Medications: Current Medications Hydromorphone HCl (Hydromorphone Hcl 0.5 Mg/0.5 Ml Syringe) 0.5 mg IVPUSH Q2H PRN; Protocol PRN Reason: Pain, Severe (Pain Scale 7-10) Last Admin: 09/18/21 20:13 Dose: 0.5 mg Documented by: Acetaminophen (Ofirmev) 1,000 mg in 100 mls @ 400 mls/hr IV Q6H [facility] Stop: 09/20/21 14:16 Last Infusion: 09/19/21 08:42 Dose: Infused Documented by: Piperacillin Sod/Tazobactam (Sod 3.375 gm/ Sodium Chloride) 50 mls @ 100 mls/hr IV Q6H [facility] Last Infusion: 09/19/21 09:16 Dose: Infused Documented by: Ketorolac Tromethamine (Ketorolac Tromethamine 30 Mg/Ml Vial) 30 mg IVPUSH Q6H [facility] Last Admin: 09/19/21 08:21 Dose: 30 mg Documented by: Ondansetron HCl (Ondansetron Hcl 4 Mg/2 Ml Vial) 4 mg IVPUSH QID PRN PRN Reason: Nausea Oxycodone HCl (Oxycodone Hcl Immed Release 5 Mg Tablet) 5 mg PO Q4H PRN PRN Reason: Pain, Moderate (Pain Scale 4-6 Oxycodone HCl (Oxycodone Hcl Immed Release 5 Mg Tablet) 10 mg PO Q4H PRN PRN Reason: Pain, Severe (Pain Scale 7-10) Pharmacy Consult (Consult Rx Perform Med Rec) 1 each MISCELLANE ONCE PRN PRN Reason: Consult order Sodium Chloride (0.9 % Sodium Chloride Flush 3 Ml Syringe) 3 ml IVFLUSH QSHIFT [facility] Last Admin: 09/19/21 08:21 Dose: 3 ml Documented by: Zolpidem Tartrate (Zolpidem Tartrate 5 Mg Tablet) 5 mg PO BEDTIME PRN PRN Reason: Insomnia Time Spent With Patient Time: Total time spent is greater than 50% in coordination of care (as documented) at patient's floor/unit and/or counseling patient: Time with patient: 15 - 24 minutes Quality Stroke Does the patient have a stroke diagnosis?: No VTE Prior VTE?: No VTE Risk Level:: Surgical - moderate VTE Device Contraindication: N/A - Device Ordered VTE Drug Contraindication: Treatment Not Indicated
[2021-09-19] MEDS: HYDROmorphone HCl 0.5 MG/0.5 ML SYRINGE IVPUSH ×2 (09:34→12:43)
[2021-09-19] MEDS: Docusate Sodium 100 MG CAPSULE PO (20:21)
[2021-09-20] VITALS (7 sets, daily range): BP systolic 94–121; BP diastolic 51–72; PULSE 78–101; RESP 15–18; TEMP 36–36.7; O2SAT 97–100
[2021-09-20] MEDS: Ketorolac Tromethamine 30 MG/ML VIAL IVPUSH ×4 (03:27→19:38)
[2021-09-20] MEDS: Piperacillin Sodium/Tazobactam 3.375 GM in 0.9 % Sodium Chloride 50 ML IV ×4 (03:28→19:38)
[2021-09-20 06:13] LABS: MANUAL DIFF FLAG NO
[2021-09-20 06:19] LABS: Basophils Percent Auto 0.2 % (0-2); Eosinophils Absolute Auto 0.1 X10*3/uL (0.0-0.4); Hematocrit 35.5 % (37.0-47.0); Hemoglobin 11.3 g/dl (12.0-16.0); Imm Gran Abs Auto 0.09 X10*3/uL (0.00-0.03); Imm Gran Pct Auto 0.7 % (0.0-0.4); Lymphocytes Absolute Auto 0.8 X10*3/uL (1.2-4.9); Lymphocytes Percent Auto 6.9 % (20-40); Mean Corpuscular HGB Conc 31.8 g/dl (31.0-35.0); Mean Corpuscular Hemoglobin 27.8 pg (27.0-33.0); Mean Corpuscular Volume 87.2 fL (80.0-98.0); Mean Platelet Volume 10.6 fL (9.4-12.3); Monocytes Absolute Auto 0.7 X10*3/uL (0.1-1.2); Monocytes Percent Auto 5.4 % (2-11); Neutrophils Absolute Auto 10.4 x10*3/uL (2.0-8.3); Neutrophils Percent Auto 85.8 % (45-73); Platelet Count 231 X10*3/uL (160-400); Red Blood Count 4.07 X10*6/uL (4.20-5.50); Red Cell Distribution Width 14.4 % (11.0-16.0); White Blood Count 12.1 X10*3/uL (4.8-10.8)
[2021-09-20] MEDS: 0.9 % Sodium Chloride Flush 3 ML SYRINGE IVFLUSH ×3 (07:25→19:38)
--- NOTE | 2021-09-20 08:24 | P.PNGS_ITS ---
Subjective Subjective Date of Service: 09/20/21 Interval history: Feel improved today with decreased abdominal pain. She was tolerating regular diet. Physical Exam Vital Signs: Vital Signs: Last Vital Signs Temp 97.0 F 09/20/21 07:49 Pulse 84 09/20/21 07:49 Resp 18 09/20/21 07:49 BP 111/59 L 09/20/21 07:49 Pulse Ox 98 09/20/21 07:49 BMI result Body Mass Index 28.1 Const: General: cooperative and no acute distress Orientation/consciousness: patient oriented x3 Resp: Effort & Inspection: normal respiratory effort and no respiratory distress GI: Other: KIMANI removed Palpation (GI): Soft to palpation, nontender and no guarding Skin: General skin exam: no rashes or lesions noted Neuro: General: patient oriented x3 Extrem: General: Yes no pedal edema Objective Data Active Medications Docusate Sodium (Docusate Sodium 100 Mg Capsule) 100 mg PO BEDTIME PRN PRN Reason: Constipation Last Admin: 09/19/21 20:21 Dose: 100 mg Documented by: SANNA Hydromorphone HCl (Hydromorphone Hcl 0.5 Mg/0.5 Ml Syringe) 0.5 mg IVPUSH Q2H PRN; Protocol PRN Reason: Pain, Severe (Pain Scale 7-10) Last Admin: 09/19/21 12:43 Dose: 0.5 mg Documented by: KIRSTIN Acetaminophen (Ofirmev) 1,000 mg in 100 mls @ 400 mls/hr IV [facility] Stop: 09/20/21 14:16 Last Infusion: 09/20/21 03:53 Dose: 0 mls/hr Documented by: SANNA Piperacillin Sod/Tazobactam (Sod 3.375 gm/ Sodium Chloride) 50 mls @ 100 mls/hr IV Q[facility] Last Infusion: 09/20/21 04:30 Dose: 0 mls/hr Documented by: SANNA Ketorolac Tromethamine (Ketorolac Tromethamine 30 Mg/Ml Vial) 30 mg IVPUSH Q[facility] Last Admin: 09/20/21 07:25 Dose: 30 mg Documented by: KIRSTIN Ondansetron HCl (Ondansetron Hcl 4 Mg/2 Ml Vial) 4 mg IVPUSH QID PRN PRN Reason: Nausea Oxycodone HCl (Oxycodone Hcl Immed Release 5 Mg Tablet) 5 mg PO Q4H PRN PRN Reason: Pain, Moderate (Pain Scale 4-6 Oxycodone HCl (Oxycodone Hcl Immed Release 5 Mg Tablet) 10 mg PO Q4H PRN PRN Reason: Pain, Severe (Pain Scale 7-10) Pharmacy Consult (Consult Rx Perform Med Rec) 1 each MISCELLANE ONCE PRN PRN Reason: Consult order Sodium Chloride (0.9 % Sodium Chloride Flush 3 Ml Syringe) 3 ml IVFLUSH [facility] Last Admin: 09/20/21 07:25 Dose: 3 ml Documented by: KIRSTIN Zolpidem Tartrate (Zolpidem Tartrate 5 Mg Tablet) 5 mg PO BEDTIME PRN PRN Reason: Insomnia Labs CBC & Chem 7: 09/20/21 05:40 09/18/21 08:10 Labs: Laboratory Results - last 24 hr 09/19/21 09/20/21 08:41 05:40 MCV 88.3 87.2 MCH 28.9 27.8 MCHC 32.8 31.8 RDW 14.5 14.4 Plt Count 228 231 MPV 10.8 10.6 Immature Gran % (Auto) 0.8 H 0.7 H Neut % (Auto) 83.3 H 85.8 H Lymph % (Auto) 10.1 L 6.9 L [place] % (Auto) 5.3 5.4 Eos % (Auto) 0.4 1.0 Baso % (Auto) 0.1 0.2 Lymph # (Auto) 1.4 0.8 L [place] # (Auto) 0.7 0.7 Eos # (Auto) 0.1 0.1 Baso # (Auto) 0.0 0.0 Abs Immat Gran (auto) 0.11 H 0.09 H Absolute Neuts (auto) 11.6 H 10.4 H Absolute Nucleated RBC 0.000 0.000 Nucleated RBC % (auto) 0.0 0.0 Procedures Date of Service Date of Service: 09/20/21 Progress Note: A&P Assessment and plan (1) S/P laparoscopic appendectomy: Status: Acute (2) Acute perforated appendicitis: Status: Acute Assessment and Plan: postop day 3 following laparoscopic appendectomy for perforated appendicitis. Patient WBC still elevated but improving. I recommended continuing the IV antibiotics for another day prior to conversion to oral antibiotic and discharge. Patient expressed understanding and agrees with the plan. Fall Risk Details Current Medications: Current Medications Docusate Sodium (Docusate Sodium 100 Mg Capsule) 100 mg PO BEDTIME PRN PRN Reason: Constipation Last Admin: 09/19/21 20:21 Dose: 100 mg Documented by: Hydromorphone HCl (Hydromorphone Hcl 0.5 Mg/0.5 Ml Syringe) 0.5 mg IVPUSH Q2H PRN; Protocol PRN Reason: Pain, Severe (Pain Scale 7-10) Last Admin: 09/19/21 12:43 Dose: 0.5 mg Documented by: Acetaminophen (Ofirm) 1,000 mg in 100 mls @ 400 mls/hr IV Q[facility]H [facility] Stop: 09/20/21 14:16 Last Infusion: 09/20/21 03:53 Dose: Infused Documented by: Piperacillin Sod/Tazobactam (Sod 3.375 gm/ Sodium Chloride) 50 mls @ 100 mls/hr IV Q[facility] Last Infusion: 09/20/21 04:30 Dose: Infused Documented by: Ketorolac Tromethamine (Ketorolac Tromethamine 30 Mg/Ml Vial) 30 mg IVPUSH Q6H [facility] Last Admin: 09/20/21 07:25 Dose: 30 mg Documented by: Ondansetron HCl (Ondansetron Hcl 4 Mg/2 Ml Vial) 4 mg IVPUSH QID PRN PRN Reason: Nausea Oxycodone HCl (Oxycodone Hcl Immed Release 5 Mg Tablet) 5 mg PO Q4H PRN PRN Reason: Pain, Moderate (Pain Scale 4-6 Oxycodone HCl (Oxycodone Hcl Immed Release 5 Mg Tablet) 10 mg PO Q4H PRN PRN Reason: Pain, Severe (Pain Scale 7-10) Pharmacy Consult (Consult Rx Perform Med Rec) 1 each MISCELLANE ONCE PRN PRN Reason: Consult order Sodium Chloride (0.9 % Sodium Chloride Flush 3 Ml Syringe) 3 ml IVFLUSH Q[facility] Last Admin: 09/20/21 07:25 Dose: 3 ml Documented by: Zolpidem Tartrate (Zolpidem Tartrate 5 Mg Tablet) 5 mg PO BEDTIME PRN PRN Reason: Insomnia Time Spent With Patient Time: Total time spent is greater than 50% in coordination of care (as documented) at patient's floor/unit and/or counseling patient: Time with patient: 15 - 24 minutes Quality Stroke Does the patient have a stroke diagnosis?: No VTE Prior VTE?: No VTE Risk Level:: Surgical - moderate VTE Device Contraindication: N/A - Device Ordered VTE Drug Contraindication: Treatment Not Indicated
--- NOTE | 2021-09-20 16:16 | HO.POSTANES ---
Post Anesthesia Evaluation Post Anesthesia Evaluation Vital Signs: Vital Signs Temp Pulse Resp BP Pulse Ox 09/20/21 16:00 97.4 F 78 17 103/55 L 98 09/20/21 11:57 96.8 F 84 18 112/70 100 09/20/21 07:49 97.0 F 84 18 111/59 L 98 Anesthesia: General Endotracheal-GETA Mental Status: Awake Pain Control: Satisfactory Nausea/Vomiting: None Hydration: Adequate Anesthesia-Related Issues: No Anes. Related Issues
[2021-09-21 03:51] VITALS: BP 98/57; PULSE 100; RESP 16; TEMP 37.5; O2SAT 96
[2021-09-21] MEDS: Ketorolac Tromethamine 30 MG/ML VIAL IVPUSH ×2 (03:52→07:29)
[2021-09-21] MEDS: Piperacillin Sodium/Tazobactam 3.375 GM in 0.9 % Sodium Chloride 50 ML IV ×2 (03:55→09:41)
[2021-09-21] MEDS: 0.9 % Sodium Chloride Flush 3 ML SYRINGE IVFLUSH (07:30)
[2021-09-21 07:32] VITALS: BP 105/61; PULSE 73; RESP 18; TEMP 36.6; O2SAT 98
--- NOTE | 2021-09-21 08:13 | PM.PNGS ---
Subjective Subjective Date of Service: 09/21/21 Interval history: Patient feels much improved with decreased abdominal pain. Tolerating diet well. Physical Exam Vital Signs: Vital Signs: Last Vital Signs Temp 97.8 F 09/21/21 07:32 Pulse 73 09/21/21 07:32 Resp 18 09/21/21 07:32 BP 105/61 09/21/21 07:32 Pulse Ox 98 09/21/21 07:32 BMI result Body Mass Index 28.1 Const: General: comfortable and well developed Nutritional Appearance: well nourished Orientation/consciousness: patient oriented x3 Limitations: no limitations Resp: Effort & Inspection: normal respiratory effort and no respiratory distress GI: Inspection: Yes incision (trochar sites are clean and intact) Palpation (GI): Soft to palpation, nontender, no guarding and not rigid Neuro: General: patient oriented x3 Extrem: General: Yes no clubbing, cyanosis or edema Objective Data Active Medications Docusate Sodium (Docusate Sodium 100 Mg Capsule) 100 mg PO BEDTIME PRN PRN Reason: Constipation Last Admin: 09/19/21 20:21 Dose: 100 mg Documented by: SANNA Hydromorphone HCl (Hydromorphone Hcl 0.5 Mg/0.5 Ml Syringe) 0.5 mg IVPUSH Q2H PRN; Protocol PRN Reason: Pain, Severe (Pain Scale 7-10) Last Admin: 09/19/21 12:43 Dose: 0.5 mg Documented by: KIRSTIN Piperacillin Sod/Tazobactam (Sod 3.375 gm/ Sodium Chloride) 50 mls @ 100 mls/hr IV Q6H [facility] Last Infusion: 09/21/21 04:39 Dose: 0 mls/hr Documented by: SANDI Ketorolac Tromethamine (Ketorolac Tromethamine 30 Mg/Ml Vial) 30 mg IVPUSH Q6H [facility] Last Admin: 09/21/21 07:29 Dose: 30 mg Documented by: HILARIO Ondansetron HCl (Ondansetron Hcl 4 Mg/2 Ml Vial) 4 mg IVPUSH QID PRN PRN Reason: Nausea Oxycodone HCl (Oxycodone Hcl Immed Release 5 Mg Tablet) 5 mg PO Q4H PRN PRN Reason: Pain, Moderate (Pain Scale 4-6 Oxycodone HCl (Oxycodone Hcl Immed Release 5 Mg Tablet) 10 mg PO Q4H PRN PRN Reason: Pain, Severe (Pain Scale 7-10) Pharmacy Consult (Consult Rx Perform Med Rec) 1 each MISCELLANE ONCE PRN PRN Reason: Consult order Sodium Chloride (0.9 % Sodium Chloride Flush 3 Ml Syringe) 3 ml IVFLUSH QSHIFT [facility] Last Admin: 09/21/21 07:30 Dose: 3 ml Documented by: HILARIO Zolpidem Tartrate (Zolpidem Tartrate 5 Mg Tablet) 5 mg PO BEDTIME PRN PRN Reason: Insomnia Labs CBC & Chem 7: 09/20/21 05:40 09/18/21 08:10 Procedures Date of Service Date of Service: 09/21/21 Progress Note: A&P Assessment and plan (1) S/P laparoscopic appendectomy: Status: Acute (2) Acute perforated appendicitis: Status: Acute Assessment and Plan: Much improved today following laparoscopic appendectomy for perforated acute appendicitis. WBC is pending for this morning. If this is improved, patient will be discharged to home with follow-up in office in 1 week. She was instructed to call the office for fever, chills, nausea, vomiting, or increased abdominal pain. Patient expressed understanding and agrees with the plan. Fall Risk Details Current Medications: Current Medications Docusate Sodium (Docusate Sodium 100 Mg Capsule) 100 mg PO BEDTIME PRN PRN Reason: Constipation Last Admin: 09/19/21 20:21 Dose: 100 mg Documented by: Hydromorphone HCl (Hydromorphone Hcl 0.5 Mg/0.5 Ml Syringe) 0.5 mg IVPUSH Q2H PRN; Protocol PRN Reason: Pain, Severe (Pain Scale 7-10) Last Admin: 09/19/21 12:43 Dose: 0.5 mg Documented by: Piperacillin Sod/Tazobactam (Sod 3.375 gm/ Sodium Chloride) 50 mls @ 100 mls/hr IV Q6H [facility] Last Infusion: 09/21/21 04:39 Dose: Infused Documented by: Ketorolac Tromethamine (Ketorolac Tromethamine 30 Mg/Ml Vial) 30 mg IVPUSH Q6H [facility] Last Admin: 09/21/21 07:29 Dose: 30 mg Documented by: Ondansetron HCl (Ondansetron Hcl 4 Mg/2 Ml Vial) 4 mg IVPUSH QID PRN PRN Reason: Nausea Oxycodone HCl (Oxycodone Hcl Immed Release 5 Mg Tablet) 5 mg PO Q4H PRN PRN Reason: Pain, Moderate (Pain Scale 4-6 Oxycodone HCl (Oxycodone Hcl Immed Release 5 Mg Tablet) 10 mg PO Q4H PRN PRN Reason: Pain, Severe (Pain Scale 7-10) Pharmacy Consult (Consult Rx Perform Med Rec) 1 each MISCELLANE ONCE PRN PRN Reason: Consult order Sodium Chloride (0.9 % Sodium Chloride Flush 3 Ml Syringe) 3 ml IVFLUSH [facility] Last Admin: 09/21/21 07:30 Dose: 3 ml Documented by: Zolpidem Tartrate (Zolpidem Tartrate 5 Mg Tablet) 5 mg PO BEDTIME PRN PRN Reason: Insomnia Time Spent With Patient Time: Total time spent is greater than 50% in coordination of care (as documented) at patient's floor/unit and/or counseling patient: Time with patient: 15 - 24 minutes Quality Stroke Does the patient have a stroke diagnosis?: No VTE Prior VTE?: No VTE Risk Level:: Surgical - moderate VTE Device Contraindication: N/A - Device Ordered VTE Drug Contraindication: Treatment Not Indicated
--- NOTE | 2021-09-21 08:22 | P.DS_ITS ---
DS: Providers Provider Date of Service: 09/21/21 Date of admission: 09/17/21 19:01 Date of discharge: 09/21/21 Primary care physician: Lidia Magallanes MD Admitting clinician: Brenton Ferrera Discharging clinician: Brenton Ferrera DS: Diagnosis Discharge Diagnosis (1) S/P laparoscopic appendectomy: Status: Acute (2) Acute perforated appendicitis: Status: Acute DS: Summary Hospital Course Hospital Course: Ana Alexander is a 41 year old female presenting with complaints of abdominal pain of 4 days duration.? The pain started in the epigastric region but became localized more to the right lower quadrant.? She reports nausea without vomiting.? She denies fever or chills.? The pain has been increasing in severity 05/10.? 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 Patient presented to the emergency department was found to have an elevated WBC.? CT of the abdomen and pelvis revealed a thicken ed and enlarged appendix multiple fecaliths suggestive of acute appendicitis. She was taken to the OR on the day of admission and found to have a perforated appendicitis with multiple fecaliths which eroded through the base of the appendix. The abdomen was washed out following appendectomy and a KIMANI drain left in place. On the first POD she mainly complained of abdominal pain in the right abdomen. She was started on a regular diet and tolerated this well. KIMANI output was cloudy serous fluid. Over the next several days the output became clear and serous, therefore the tube was removed on 09/20/2021. She was kept on IV Zosyn for her entire admission and will be converted to po AUgmentin upon discharge. WBC was recheck on 09/21/2021 and was normal at 10. Patient will be discharged to home with follow-up in the office in 1 week. She will be placed on oral antibiotics as well. Status at Discharge Functional status at discharge: independent ambulation Overall status at discharge: patient is back to baseline Time Spent with Patient Time attestation: Total time spent providing and/or coordinating discharge services: Discharge coordination time: Less than 30 minutes Quality: Stroke Does the patient have a stroke diagnosis?: No Physical Exam Vital Signs: Vital Signs: Last Vital Signs Temp 97.8 F 09/21/21 07:32 Pulse 73 09/21/21 07:32 Resp 18 09/21/21 07:32 BP 105/61 09/21/21 07:32 Pulse Ox 98 09/21/21 07:32 BMI result Body Mass Index 28.1 Const: General: comfortable and well developed Nutritional Appearance: well nourished Orientation/consciousness: patient oriented x3 Limitations: no limitations Resp: Effort & Inspection: normal respiratory effort GI: Inspection: Yes incision (C,D, and I) Palpation (GI): Soft to palpation, nontender, no guarding and not rigid Neuro: General: patient oriented x3 Extrem: General: Yes no clubbing, cyanosis or edema DS: Data Data Completed and Pending Completed studies during hospitalization [Text1]: Procedures Excision of Stomach, Percutaneous Endoscopic Approach, Vertical (02/25/21) Release Peritoneum, Percutaneous Endoscopic Approach (02/25/21) Repair Diaphragm, Percutaneous Endoscopic Approach (02/25/21) Pending studies at discharge: Pending at discharge 09/17/21 18:50 Surgical [PTH] Routine Discharge Plan Discharge Patient Disposition: Home, Self-Care Discharge Diagnosis: Acute perforated appendicitis, s/p laparoscopic appendectomy Referrals: Brenton Ferrera MD [Physician] - 2 Weeks Lidia Magallanes MD [Primary Care Provider] - 1 Week Discharge Medications: New oxycodone-acetaminophen [Endocet] 5-325 mg tablet 1 tab PO Q6H PRN (Reason: pain (scale score 7-10)) Qty: 15 0RF amoxicillin-pot clavulanate [Augmentin] 500-125 mg tablet 1 tab PO Q8H Qty: 30 0RF Continued Bariatric Multivitamins 45 mg iron- 800 mcg-120 mcg capsule 1 cap PO DAILY Qty: 20 0RF Discharge Orders: Discharge Order (Routine); Ordered 09/21/21 Ordered By: Elieser Putnam Diet: advance to usual diet Activity on Discharge: No heavy lifting Stand Alone Forms: Patient Portal Discharge page Activity Restrictions/Additional Instructions: No lifting > 10 pounds for 2 weeks No driving for one week Remove dressing in 3 days Follow up in office in one week. If the incision area is tender, you may apply an ice pack for short intervals (No more than 20 minutes on, followed by at least 20 minutes off). Do not apply heat. Do not use creams, lotions, or topical antibiotics unless instructed to do so by your surgeon. These can cause infection or allergic reaction. Ok to shower. Call Your Doctor If: -Your temperature exceeds 101.5? F -You experience excessive pain or swelling -You have an unexpected reaction to medication -You have excessive bleeding -You experience continued vomiting/nausea -Your incision begins to separate -Your incision shows signs of infection such as increased redness, swelling, excessive pain, drainage (light blood or clear fluid is normal) or heat Care Plan Goals: return to normal diet and activity Health Concerns: acute abdominal pain for four days prior to admission Plan of Treatment: laparoscopic appendectomy Assessment: Acute perforated appendicitis Discharge Date/Time: 09/21/21 11:13
[2021-09-21 08:41] LABS: MANUAL DIFF FLAG NO
[2021-09-21 08:46] LABS: Basophils Percent Auto 0.2 % (0-2); Eosinophils Absolute Auto 0.1 X10*3/uL (0.0-0.4); Eosinophils Percent Auto 1.4 % (0-4); Hematocrit 36.3 % (37.0-47.0); Hemoglobin 11.8 g/dl (12.0-16.0); Imm Gran Abs Auto 0.07 X10*3/uL (0.00-0.03); Imm Gran Pct Auto 0.7 % (0.0-0.4); Lymphocytes Absolute Auto 1.4 X10*3/uL (1.2-4.9); Lymphocytes Percent Auto 14.4 % (20-40); Mean Corpuscular HGB Conc 32.5 g/dl (31.0-35.0); Mean Corpuscular Hemoglobin 28.6 pg (27.0-33.0); Mean Corpuscular Volume 87.9 fL (80.0-98.0); Mean Platelet Volume 10.5 fL (9.4-12.3); Monocytes Absolute Auto 0.9 X10*3/uL (0.1-1.2); Monocytes Percent Auto 9.3 % (2-11); Neutrophils Absolute Auto 7.4 x10*3/uL (2.0-8.3); Platelet Count 275 X10*3/uL (160-400); Red Blood Count 4.13 X10*6/uL (4.20-5.50); Red Cell Distribution Width 14.7 % (11.0-16.0)
[2021-09-21] MEDS: ondansetron HCL 4 MG/2 ML VIAL IVPUSH (09:41)
--- NOTE | 2021-09-21 10:48 | MHC.CM.PN ---
PT CLEARED TO DC HOME WITH NO SERVICES PT TO ARRANGE TRANSPORT
== END 2021-09-21 11:13 | disposition home or self-care (01) | DRG 233 ==
LOC: HO.ED 14:50 → HO.S3 19:40
PROVIDERS: Admitting Provider Surgery; Emergency Provider Emergency Medicine; PCP Internal Medicine; Visit Provider Surgery
PROC: 0DTJ4ZZ Resection of Appendix, Percutaneous Endoscopic Approach (ICD-10-PCS; CPT 44970; principal; 2021-09-17 16:40)
DX: K35.32 Acute appendicitis with perforation, localized peritonitis, and gangrene, without abscess (principal); K38.1 Appendicular concretions; Z20.822 Contact with and (suspected) exposure to COVID-19; Z87.891 Personal history of nicotine dependence; Z88.5 Allergy status to narcotic agent; Z79.899 Other long term (current) drug therapy
CPT/HCPCS: 36415; 74176; 80048; 80076; 81001; 81025; 83690; 85025; 86850; 86900; 86901; 87086; 87635; 88304; 96361; 96365; 96375; 99024; 99212; 99285; J0131; J1100; J1170; J1885; J2250; J2270; J2405; J2543; J3010

== ENCOUNTER → 2022-05-07 11:32 | Outpatient (BNVA) | payer OTHER, SELFPAY | PROVIDERS: PCP Internal Medicine; Visit Provider Physician Assistant Surgical | DX: E66.3 Overweight (principal); Z98.890 Other specified postprocedural states; Z87.19 Personal history of other diseases of the digestive system; Z98.84 Bariatric surgery status; Z68.29 Body mass index [BMI] 29.0-29.9, adult | CPT/HCPCS: 99212 ==

== ENCOUNTER 2022-05-10 06:07 | Outpatient (REF) | payer OTHER, SELFPAY ==
[2022-05-10 06:22] LABS: MANUAL DIFF FLAG NO
[2022-05-10 07:33] LABS: Basophils Percent Auto 0.3 % (0-2); Eosinophils Absolute Auto 0.2 X10*3/uL (0.0-0.4); Eosinophils Percent Auto 2.7 % (0-4); Hematocrit 39.6 % (37.0-47.0); Hemoglobin 12.5 g/dl (12.0-16.0); Imm Gran Abs Auto 0.01 X10*3/uL (0.00-0.03); Imm Gran Pct Auto 0.1 % (0.0-0.4); Lymphocytes Absolute Auto 2.9 X10*3/uL (1.2-4.9); Lymphocytes Percent Auto 42.8 % (20-40); Mean Corpuscular HGB Conc 31.6 g/dl (31.0-35.0); Mean Corpuscular Hemoglobin 27.1 pg (27.0-33.0); Mean Corpuscular Volume 85.9 fL (80.0-98.0); Mean Platelet Volume 10.5 fL (9.4-12.3); Monocytes Absolute Auto 0.4 X10*3/uL (0.1-1.2); Monocytes Percent Auto 6.3 % (2-11); Neutrophils Absolute Auto 3.2 x10*3/uL (2.0-8.3); Neutrophils Percent Auto 47.8 % (45-73); Platelet Count 264 X10*3/uL (160-400); Red Blood Count 4.61 X10*6/uL (4.20-5.50); White Blood Count 6.7 X10*3/uL (4.8-10.8)
[2022-05-10 07:47] LABS: Estimated Average Glucose 100 mg/dL; Hemoglobin A1c % 5.1 %
[2022-05-10 08:01] LABS: Alanine Aminotransferase 18 U/L (0-31); Albumin Level 3.8 g/dL (3.5-5.0); Alkaline Phosphatase 68 U/L (39-117); Anion Gap 16 (12-20); Aspartate Amino Transferase 16 U/L (5-31); Bilirubin Total 0.4 mg/dL (0.0-1.0); Blood Urea Nitrogen 16 mg/dL (9-16); C Reactive Protein 0.16 mg/dL (< or = 0.50); Calcium 9.1 mg/dL (8.4-10.2); Carbon Dioxide 25 mmol/L (22-29); Chloride 108 mmol/L (96-108); Cholesterol 155 mg/dL; Estimated Glomerular Filt Rate > 60; Glucose Random 86 mg/dL (60-115); HDL Cholesterol 46 mg/dL; Iron 51 mcg/dL (30-160); LDL Cholesterol Calculated 96 mg/dl; Percent Iron Saturation 15 % (15-50); Potassium 3.9 mmol/L (3.3-5.1); Sodium 145 mmol/L (135-145); Total Iron Binding Capacity 335 mcg/dL (228-428); Total Protein 6.6 g/dL (6.5-8.0); Triglycerides 65 mg/dL; Unsaturated Iron Binding 284 ug/dL
[2022-05-10 08:24] LABS: Ferritin 9 ng/mL (10-250); Insulin 17 uU/mL (2-29); TSH reflex Free T4 1.53 uIU/mL (0.32-4.0); Vitamin D 25-OH Total 29.9 ng/mL (>30)
[2022-05-10 08:28] LABS: Folate 8.3 ng/mL (> or = 4.0); Vitamin B12 320 pg/mL (200-900)
[2022-05-11 10:46] LABS: Calcium (PTHI) 9.1 mg/dL (8.6-10.2); PTHI 43 pg/mL (16-77)
[2022-05-13 14:11] LABS: Vitamin B1 10 nmol/L (8-30)
[2022-05-15 23:32] LABS: Vitamin A 47 mcg/dL (38-98)
== END 2022-05-10 06:08 | disposition home or self-care (01) ==
LOC: HO.LAB 06:07
PROVIDERS: PCP Internal Medicine; Visit Provider Physician Assistant Surgical
DX: Z98.84 Bariatric surgery status (principal)
CPT/HCPCS: 36415; 80053; 80061; 82306; 82607; 82728; 82746; 83036; 83525; 83540; 83970; 84425; 84443; 84590; 84630; 85025; 86140

== ENCOUNTER 2024-12-11 14:07 | Outpatient (REF) | payer OTHER, SELFPAY ==
[2024-12-11 15:07] LABS: Prothrombin Time 10.9 SEC (10.9-12.4)
[2024-12-12 12:03] LABS: Anti Nuclear Antibody Screen NEGATIVE (NEGATIVE)
[2024-12-14 08:38] LABS: DNAds, Crithidia Antibody Negative (Negative)
== END 2024-12-11 14:08 | disposition home or self-care (01) ==
LOC: HO.LAB 14:07
PROVIDERS: Psychiatry & Neurology Neurology; PCP Internal Medicine; Visit Provider Internal Medicine
DX: G93.40 Encephalopathy, unspecified (principal)
CPT/HCPCS: 36415; 85610; 86038; 86255

== ENCOUNTER 2025-01-11 11:43 | Day surgery (SDC) | payer OTHER, SELFPAY ==
--- OUTSIDE RECORDS SUMMARY | 2025-01-01 14:47 | XMS_ITS | Clinical Summary ---
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 Active EPINEPHrine (EpiPen 2-Richard) 0.3 mg/0.3 mL injection Inject 0.3 mL (0.3 mg total) as directed if needed for anaphylaxis. Use as directed Active meclizine (ANTIVERT) 25 mg tablet Take 1 tablet (25 mg total) by mouth 3 (three) times a day if needed for dizziness. May cause drowsiness avoid driving or operating heavy machinery 90 tablet 025 2025 Active ondansetron ODT (ZOFRAN-ODT) 8 mg disintegrating tablet Dissolve 1 tablet (8 mg total) on top of the tongue every 8 (eight) hours if needed for nausea or vomiting. 20 tablet Active ibuprofen (ADVIL,MOTRIN) 600 mg tablet Take 1 tablet (600 mg total) by mouth every 8 (eight) hours if needed for moderate pain. 21 tablet Active tirzepatide, weight loss, (Zepbound) 5 mg/0.5 mL injection INJECT 0.5 ML (5 MG TOTAL) UNDER THE SKIN EVERY 7 (SEVEN) DAYS FOR 28 DAYS. 2 mL 025 2024 Active tirzepatide, weight loss, (Zepbound) 5 mg/0.5 mL injection Inject 0.5 mL (5 mg total) under the skin every 7 (seven) days for 28 days. 2 mL 025 2024 Active FLUoxetine (PROzac) 20 mg capsule Take 1 capsule (20 mg total) by mouth 1 (one) time each day. 90 each 1 025 2024 Discontinued(T herapy completed) tirzepatide, weight loss, (Zepbound) 2.5 mg/0.5 mL injection Inject 0.5 mL (2.5 mg total) under the skin every 7 (seven) days. 2024 Discontinued HYDROcodone-aceta minophen (NORCO) 5-325 mg per tablet Take 1 tablet by mouth every 4 (four) hours if needed for severe pain for up to 7 days. Max Daily Amount: 6 tablets 15 tablet 2024 tirzepatide, weight loss, (Zepbound) 5 mg/0.5 mL injection Inject 0.5 mL (5 mg total) under the skin every 7 (seven) days for 28 days. 2 mL 025 2024 Discontinued(R eorder) Hospital, Clinic, or Other Facility Administered Medication Ordered Dose Route Frequency Start Date End Date Status dexAMETHasone (DECADRON) injection 4 mgIndications:Finger pain, right 4 mg Once PRN Procedure 12/26/2024 12/26/2024 Ended lidocaine (XYLOCAINE) 1 % injection 0.5 mLIndications:Finger pain, right .5 mL inj Once PRN Procedure 12/26/2024 12/26/2024 Ended Active Problems Problem Noted Date Diagnosed Date Arthritis of carpometacarpal (CMC) joint of left thumb 08/21/2024 Asthma 06/12/2024 H. pylori infection 06/12/2024 Gastritis 06/12/2024 Pancreatitis 06/12/2024 Prediabetes 06/12/2024 Morbid obesity with BMI of 4 0.0-44.9, adult ([facility] V24, [facility] V28) 06/12/2024 Left carpal tunnel syndrome 01/26/2023 COVID-19 05/31/2022 Overview (06/12/2024): 06/01/22 at work Right nephrolithiasis 06/22/2021 Anxiety 12/09/2020 Primary osteoarthritis of fi rst carpometacarpal joint of left hand 04/21/2020 IFG (impaired fasting glucose) 03/29/2019 Palpitations 09/07/2018 Overview (06/12/2024): Loop recorder- did not complete 30 days Pilar cysts 09/07/2018 Right carpal tunnel syndrome 09/07/2018 Overview (06/12/2024): Bilateral. Splints. EMG ordered 09/28/16 Depression 09/05/2018 Fredo-Schlatter's disease 09/05/2018 PTSD (post-traumatic stress disorder) 09/05/2018 Encounters Date Type Department Care Team Description 12/31/2024 10:00 AM EDT Evaluation [facility] [address] [place] [phone] Gloria Medina P, OTR/L Thumb pain, left (Primary Dx); Surgery follow-up 12/31/2024 Plan of Care Documentation [facility] [address] [phone] 12/26/2024 11:00 AM EDT Office Visit Orthopedic [address] [phone] Harriett Murdock PA Finger pain, right (Primary Dx) 12/14/2024 11:45 AM EDT Office Visit Orthopedic [address] [place] [phone] Harriett Murdock PA Surgery follow-up (Primary Dx) 12/13/2024 Telephone Orthopedic Surgery [facility] [address] [phone] Monae Diaz MD 12/05/2024 8:30 AM EDT - 12/05/2024 11:00 AM EDT Surgery [facility] OR [address] [place] [phone] Monae Diaz MD ARTHROPLASTY CARPOMETACARPAL-left thumb trapeziectomy w/interpositional arthroplasty using wrist flexor tendon [33193 (CPT??) +1 more] 12/05/2024 8:26 AM EDT Anesthesia Event [facility] OR [address] [place] [phone] Prabhu Najera MD 12/05/2024 7:04 AM EDT - 12/05/2024 12:32 PM EDT Hospital Encounter [facility] OR [address] [place] [phone] Monae Diaz MD Arthritis of carpometacarpal (CMC) joint of left thumb Discharge Disposition: Home or Self Care 11/27/2024 3:30 PM EDT Consult Orthopedic [address] [phone] Monae Diaz MD Primary osteoarthritis of first carpometacarpal joint of left hand (Primary Dx) 11/21/2024 Telephone Orthopedic Surgery [facility] [address] [phone] Monae Diaz MD auth for Surgery 11/06/2024 Telephone Bariatric Surgery [facility] [address] [phone] Perry Villalobos MD prior auth (Prior auth) 10/24/2024 9:00 AM EDT Office Visit Bariatric Surgery [address] [phone] Perry Villalobos MD Class 1 obesity due to excess calories with body mass index (BMI) of 32.0 to 32.9 in adult, unspecified whether serious comorbidity present (Primary Dx) 10/11/2024 3:08 PM EDT - 10/11/2024 11:59 PM EDT Hospital Encounter Radiology Department - [address] [phone] White matter lesion of central nervous system Discharge Disposition: Home or Self Care from Last 3 Months Immunizations Name Administration Dates Next Due Hepatitis B Pediatric (Enger ix B; Recombivax HB) to less than 20 yo 09/28/2016 Influenza Quadravalent, MDCK , 0.5ml, preservative free (Flucelvax) 6mo and older 04/10/2021 Influenza trivalent, 0.5mL, preservative free (Fluarix; FluLaval; Fluzone) ages 6mo and older (Afluria) 3 years and older 05/09/2020 MMR, measles mumps and rubel la Live (Priorix; M-M-R II) 12mo and older 02/02/2022,12/31/2021 Surgical History Surgery Date Site/Laterality Comments TUBAL LIGATION PROCEDURE: HISTORICAL TUBAL LIGATION CHOLECYSTECTOMY 2012 PROCEDURE: HISTORICAL CHOLECYSTECTOMY; COMMENT: Laparoscopic ESOPHAGOGASTRODUODENOSCOPY 07/2018 PROCEDURE: NE ESOPHAGOGASTRODUODENOSCOPY TRANSORAL DIAGNOSTIC; COMMENT: + H pylori KNEE SURGERY 09/2014 PROCEDURE: HISTORICAL KNEE SURGERY; COMMENT: NEOS - bone fragment remoed OTHER SURGICAL HISTORY 2012 PROCEDURE: HISTORY OTHER; COMMENT: cysts removed from scalp in [place] OTHER SURGICAL HISTORY 02/26/2021 PROCEDURE: HISTORY OTHER; COMMENT: [place]. Gastric sleeve APPENDECTOMY 09/2021 PROCEDURE: NE APPENDECTOMY CARPAL TUNNEL RELEASE 08/01/2022 - 07/31/2023 Bilateral SHOULDER SURGERY Left bone spurs; debridement/arthroscopy? HAND SURGERY 12/05/2024 Left Left thumb trapeziectomy with interpositional arthroplasty using one half of the flexor carpi radialis tendon Medical History Medical History Date Comments Asthma DX:Asthma Pancreatitis DX:Pancreatitis Gastritis DX:Gastritis H. pylori infection DX:H. pylori infection Depression 09/05/2018 DX:Depression PTSD (post-traumatic stress disorder) 09/05/2018 DX:PTSD (post-traumatic stress disorder) Saffell-Schlatter's disease 09/05/2018 DX:Os good-Schlatter's disease Morbid obesity with BMI of 4 0.0-44.9, adult ([facility] V24, [facility] V28) 09/07/2018 DX:Morbid obesity wit h BMI of 40.0-44.9, adult ([facility]) Carpal tunnel syndrome 09/07/2018 DX:Carpal tunnel syndrome; COMMENT: Bilateral. Splints. EMG ordered 09/28/16 Palpitations 09/07/2018 DX:Palpitations; COMMENT: Loop recorder- did not complete 30 days Pilar cysts 09/07/2018 DX:Pilar cysts History of fractured kneecap 09/07/2018 DX: History of fractured kneecap; COMMENT: Surgery 2012 Prediabetes DX:Prediabetes Family History Medical History Relation Name Comments Other: breast cancer Aunt Hyperthyroidism Brother Hyperthyroidism Father IBS, colon p olyps Other cancer Father's side Diabetes Maternal Grandmother Diabetes Mother HTN, Hypothyroi d, COPD, Fatty liver Hypertension Mother Heart attack Other Cousin Relation Name Status Comments Aunt Alive Brother Alive Daughter 1 Alive Daughter 2 Alive Daughter 3 Alive Father Alive Father's side Maternal Grandfather Maternal Grandmother Alive Mother Alive Other Cousin Paternal Grandfather Paternal Grandmother Sister 1 Alive Sister 2 Alive Social History Tobacco Use Types Packs/Day Years Used Date Smoking Tobacco: Former Smokeless Tobacco: Never Tobacco Cessation:Counseling Given: Not Answered Alcohol Use Standard Drinks/Week Comments No 0 (1 standard drink = 0.6 oz pur e alcohol) Interpersonal Safety Answer Date Record ed Physical Abuse 12/05/2024 Verbal Abuse 12/05/2024 Comments No Sex and Gender Information Value Date Recorded Sex Assigned at Female 11/29/2024 8:19 PM EDT Legal Sex Female 3:49 PM EST Gender Identity Female 11/29/2024 8:19 PM EDT Sexual Orientation Straight 12/03/2024 8: 20 AM EDT Obstetrics History Last Filed Vital Signs Vital Sign Reading Time Taken Comments Blood Pressure 93/60 12/05/2024 11:39 AM EDT Pulse 68 12/05/2024 11:39 AM EDT Temperature 36.2 ??C (97.2 ??F) 12/05/2024 11:39 AM E DT Respiratory Rate 18 12/05/2024 11:39 AM EDT Oxygen Saturation 97% 12/05/2024 11:39 AM EDT Inhaled Oxygen Concentration - - Weight 83.5 kg (184 lb 1.4 oz) 12/26/2024 10:58 AM EDT Height 162.2 cm (5' 3.86 ) 12/26/2024 10:58 AM E DT Body Mass Index 31.74 12/26/2024 10:58 AM EDT Plan of Treatment Upcoming Encounters Date Type Department Care Team (Late st Contact Info) Description 01/07/2025 10:00 AM EDT Treatment [facility] [address] [phone] Gloria Medina, OTR/L 01/14/2025 10:00 AM EDT Treatment [facility] [address] [phone] Gloria Medina, OTR/L 01/21/2025 10:00 AM EDT Treatment [facility] [address] [phone] Gloria Medina, OTR/L 02/05/2025 11:00 AM EDT Office Visit Orthopedic Surgery - [place] 175 [facility] [address] [place] [phone] Monae Diaz MD [address] [phone] 02/21/2025 3:15 PM EDT Office Visit Bariatric Surgery [facility] [address] [phone] Perry Villalobos MD [address] [address] 05/09/2025 10:20 AM EDT Office Visit [facility] [address] [facility] [address] [place] [phone] Mickey Centeno MD 300 [facility] [address] [place] [address] Health Maintenance Due Date Last Done Comments Breast Cancer Screening 1980 Hepatitis B Vaccines (2 of 3 - 19+ 3-dose series) 10/26/2016 09/28/2016, 06/21/2016 Pneumococcal Vaccine: Pediatrics (0 to 5 Years) and At-Risk Patients (6 to 64 Years) (2 of 2 - PCV) 07/31/2019 07/31/2018 Social Influencers of Health Screening 07/10/2022 COVID-19 Vaccine ( season) 2024 06/13/2021, 09/16/2020, 08/26/2020 Depression Screening 01/29/2025 01/30/2024 Influenza Vaccine (Season Ended) 2025 05/22/2023, 07/04/2022, 04/10/2021, Additional history exists Cervical Cancer Screening: HPV 10/07/2026 10/07/2021 Cholesterol Screening (Lipid Panel) 09/19/2029 09/19/2024, 01/30/2024, 01/30/2024 DTaP,Tdap,and Td Vaccines (3 - Td or Tdap) 07/04/2032 07/04/2022, 05/06/2014 Hepatitis C Screening Completed 09/05/2018 MMR Vaccines Aged Out 02/02/2022, 12/31/2021 No lo nger eligible based on patient's age to complete this topic HIV Screening Completed 11/30/2024 HIB Vaccines Aged Out No longer eligi ble based on patient's age to complete this topic HPV Vaccines Aged Out No longer eligi ble based on patient's age to complete this topic Hepatitis A Vaccines Aged Out No long er eligible based on patient's age to complete this topic IPV Vaccines Aged Out No longer eligi ble based on patient's age to complete this topic Meningococcal ACWY Vaccine Aged Out N o longer eligible based on patient's age to complete this topic Meningococcal B Vaccine Aged Out No l onger eligible based on patient's age to complete this topic RSV Immunization Patients Under 20 months Aged Out No longer eligible based on patient's age to complete this topic Varicella Vaccines Aged Out No longer eligible based on patient's age to complete this topic Goals Goal Patient Goal Type Associated Problems Recent Progress Patient-Stated? Author to be able to use my right hand General Yes Gloria Medina, OTR/L Note: STG's 4-6 visits 1: patient will have appropriate palm based thumb splint in place. Patient will demo independent management of splint 2: patient will be able to demo HEP to increase wrist and thumb ROM ( able to oppose RF/MF) / improve ROM PIP joint 3 Patient will present with decreased edema in left thumb ( at eval circumference MCP. Joint right thumb = 8 cm compared to 10 on the left thumb 4: Patient reports less pain in her left hand/thumb ( NO more than 3:10) 12 visits: LTG's: Patient will present with decreased pain and increased functional use of her left hand which is reflected in decreased QUICK DASH scores. Patient will have functional 2 pinch / 3 jaw crissy and she is able to belt picker small objects from table top and use her left hand to functionally hold and use utensils/ knife. Patient is able to use her left hand to assist with clothing closures ( zippers/buttoning ) Procedures Procedure Name Priority Date/Time Associated Diagnosis Comments SPLINT APPLICATION Routine 12/26/2024 12:30 PM EDT Finger pain, right NE ARTHROCENTESIS/ASPIR ATION/INJECTION SMALL JOINT/BURSA WO U/S GUIDANCE Routine 12/26/2024 11:00 AM EDT Finger pain, right EXTERNAL CLINICAL LAB 12/11/2024 EXTERNAL CLINICAL LAB 12/11/2024 EXTERNAL CLINICAL LAB 12/11/2024 PROTHROMBIN TIME WITH INR 12/11/2024 XR FINGERS 2+ VIEWS LEFT Routine 12/05/2024 11:34 AM EDT TISSUE EXAM Routine 12/05/2024 10:05 AM EDT Arthritis of carpometacarpal (CMC) joint of left thumb TH AN LMA(NO CHARGE) Routine 12/05/2024 8:47 AM EDT NE XFER/TRNSPL TNDN CARPOMETACARPAL AREA/DORSUM HAND WO FREE GRAFT EA TNDN 12/05/2024 8:28 AM EDT Arthritis of carpometacarpal (CMC) joint of left thumb Case Notes MINI C -ARM, ANESTHESIA CHOICE, PRESURGICAL BLOCK NE ARTHROPLASTY INTERCARPAL/CARPOMET ACARPAL JOINTS INTERPOSTION 12/05/2024 8:28 AM EDT Arthritis of carpometacarpal (CMC) joint of left thumb Case Notes MINI C -ARM, ANESTHESIA CHOICE, PRESURGICAL BLOCK TH AN NERVE BLOCK SUPRACLAVICULAR (NO CHARGE) Routine 12/05/2024 8:05 AM EDT TH AN NERVE BLOCK SUPRACLAVICULAR (CHARGE) Routine 12/05/2024 8:05 AM EDT NE IMMUNOFIXATION ELECTROPHORESIS SERUM Routine 11/30/2024 1:32 PM EDT Encephalopathy, unspecified CARDIOLIPIN ANTIBODIES, IGG, IGM AND IGA Routine 11/30/2024 1:32 PM EDT Encephalopathy, unspecified IMMUNOGLOBULINS IGG, IGA, IGM Routine 11/30/2024 1:32 PM EDT Encephalopathy, unspecified TREPONEMA PALLIDUM ANTIBODY WITH REFLEX TO RPR AND PARTICLE AGGLUTINATION Routine 11/30/2024 1:32 PM EDT Encephalopathy, unspecified HIV 1, 2 ANTIBODY, P24 ANTIGEN WITH REFLEX TO DIFFERENTIATION Routine 11/30/2024 1:32 PM EDT Encephalopathy, unspecified BORRELIA BURGDORFERI ANTIBODY Routine 11/30/2024 1:32 PM EDT Encephalopathy, unspecified SEDIMENTATION RATE Routine 11/30/2024 1:32 PM EDT Encephalopathy, unspecified IMMUNOFIXATION ELECTROPHORESIS Routine 11/30/2024 1:32 PM EDT Encephalopathy, unspecified BABESIA MICROTI ANTIBODIES, IGG AND IGM Routine 11/30/2024 1:32 PM EDT Encephalopathy, unspecified MR BRAIN W CONTRAST Routine 10/11/2024 3:58 PM EDT White matter lesion of central nervous system LIPID PANEL WITH REFLEX TO DIRECT LDL Routine 09/19/2024 8:40 AM EST Obesity (BMI 30-39.9) HM DEPRESSION SCREENING Routine 01/30/2024 HM HPV Routine 10/07/2021 HEPATITIS C SCREENING Routine 09/05/2018 from Last 3 Months or Most Recently Relevant to Health Maintenance Results * Splint Application (12/26/2024 12:30 PM EDT) Harriett Somers PA - 12/26/2024 12:30 PM EDT ASHU Vera ? 12/26/2024 12:32 PM Splint Application Date/Time: 12/26/2024 12:30 PM Performed by: ASHU Vera Authorized by: ASHU Vera Injury Location details: left hand Pre-procedure assessment Distal perfusion: normal ?? Distal sensation: normal ?? Range of motion: normal ?? Procedure Immobilization: splint Splint/Brace type: thumb spica Supplies used: Ortho-Glass us Harriett [place] [facility]IDE ORDERABLES Final Result * NE ARTHROCENTESIS/ASPIRATION/INJECTION SMALL JOINT/BURSA WO U/S GUIDANCE (12/26/2024 11:00 AM EDT) Harriett Somers PA - 12/26/2024 11:00 AM EDT ASHU Vera ? 12/26/2024 12:32 PM S Inj/Asp: R long PIP Indications: pain and joint swelling Details: 25 G needle Medications: 4 mg dexAMETHasone 4 mg/mL; 0.5 mL lidocaine 1 % us Harriett [facility] ORDERABLES Final Result * External clinical lab (12/11/2024) Only the most recent of3 resultswithin the time period is included. Provider [facility] BLOOD ORDERABLES Fin al Result * Prothrombin time with INR (12/11/2024) Provider [facility] BLOOD ORDERABLES Fin al Result * XR Fingers 2+ Views Left (12/05/2024 11:34 AM EDT) Anatomical Region Laterality Modality Upper Extremities, Fingers Left Radio Fluoroscopy 12/05/2024 4:16 PM EDT Impressions 12/05/2024 4:17 PM EDT Impression: Intraoperative images of the left hand and wrist. NC -------- FINAL REPORT -------- Dictated By: Catherine Schaffer Dictated Date: 12/05/2024 16:16 ET Assigned Physician: Catherine Schaffer Reviewed and Electronically Signed By: Catherine Schaffer Signed Date: 12/05/2024 16:17 ET Workstation ID: [id number] Transcribed By: Self Edit Transcribed Date: 12/05/2024 16:16 ET Narrative 12/05/2024 4:17 PM EDT Findings: Digital spot images of the left hand and wrist are submitted from the OR, used intraoperatively by Dr. Diaz during an orthopedic procedure. No radiologist was in attendance. Procedure Note Catherine Schaffer MD - 12/05/2024 Findings: Digital spot images of the left hand and wrist are submitted from the OR,used intraoperatively by Dr. Diaz during an orthopedic procedure. Noradiologist was in attendance. IMPRESSION: Impression: Intraoperative images of the left hand and wrist. NC -------- FINAL REPORT -------- Dictated By: Catherine Schaffer Dictated Date: 12/05/2024 16:16 ET Assigned Physician: Catherine Schaffer Reviewed and Electronically Signed By: Catherine Schaffer Signed Date: 12/05/2024 16:17 ET Workstation ID: [id number] Transcribed By: Self Edit Transcribed Date: 12/05/2024 16:16 ET us Monae Diaz MD IMG XR PROCEDURES Final Resul t * Tissue exam (12/05/2024 10:05 AM EDT) Final Diagnosis Bone, Left, thumb trapezium-arthropl asty: -DEGENERATIVE OSTEOARTHROPATHY 12/07/2024 11:56 AM EDT [facility] Gross Description A. Hand, Left, thumb trapezium: Labeled left thum hand L . Received in formalin is a 3.0 x 2.8 x 0.8 cm aggregate of yellow indurated bone fragments with minimal attached soft, castaneda tissue. Kindergarten Prep Teacher sections are submitted in one cassette, multiple pieces, following decalcification. TS 12/07/2024 11:56 AM EDT [facility] Disclaimer Unless otherwise specified, all tissue is 10% NB formalin fixed and paraffin embedded. 12/07/2024 11:56 AM EDT [facility] Bone Structure of left hand / Unknown 12/05/2024 10:05 AM EDT 12/05/2024 10:52 AM EDT us Monae Diaz MD LAB PATHOLOGY ORDERABLES Gema l Result [facility] [address] [place] [address], * TH AN LMA(NO CHARGE) (12/05/2024 8:47 AM EDT) Narrative Margareth Abbasi CRNA - 12/05/2024 8:47 AM EDT Margareth Abbasi CRNA ? 12/05/2024 ??8:47 AM General Information and Staff Patient location during procedure: OR Performed by: Margareth Abbasi CRNA Authorized by: Prabhu Najera MD ?? Intubation Additional Comments Gauze bite block Urgency: elective Final Airway Details LMA Size: 4 LMA Type: LMA Seal Pressure: Final airway type: LMA Indications and Patient Condition Indications for airway management: anesthesia Soft Tissue Damage: No Dentition Unchanged: Yes Patient position: neutral us Prabhu Najera MD ANESTHESIA ORDERABLES Final R esult * TH AN NERVE BLOCK SUPRACLAVICULAR (CHARGE), TH AN NERVE BLOCK SUPRACLAVICULAR (NO CHARGE) (12/05/2024 8:05 AM EDT) Prabhu De Leon MD - 12/05/2024 8:05 AM EDT Prabhu Najera MD ? 12/05/2024 ??8:19 AM Peripheral Block Patient location during procedure: pre-op Start time: 12/05/2024 8:05 AM End time: 12/05/2024 8:12 AM Reason for block: post-op pain management Staffing Performed: anesthesiologist Anesthesiologist: Prabhu Najera MD Preanesthetic Checklist Completed: patient identified, IV checked, site marked, risks and benefits discussed, surgical consent, monitors and equipment checked, pre-op evaluation and timeout performed Peripheral Block Patient position: supine Prep: ChloraPrep Patient monitoring: continuous pulse ox and heart rate (NIBP) Block type: supraclavicular Laterality: left Injection technique: single-shot Guidance: ultrasound guided and Ultrasound image saved to chart Local infiltration: lidocaine Needle Needle type: short-bevel Needle gauge: 21 G Needle length: 5 cm Needle localization: ultrasound guidance (Ultrasound with tip visualized throughout) Medications Administered ropivacaine (NAROPIN) injection 0.5 % - infiltration 30 mL - 12/05/2024 8:05:00 AM midazolam (VERSED) PF injection 1 mg/mL - intravenous 2 mg - 12/05/2024 8:05:00 AM fentaNYL (SUBLIMAZE) injection 50 mcg/mL - intravenous 50 mcg - 12/05/2024 8:05:00 AM Assessment Injection assessment: negative aspiration for heme, no paresthesia on injection, incremental injection with negative aspiration q 5ml and local visualized surrounding nerve on ultrasound Paresthesia pain: none Heart rate change: no Slow fractionated injection: yes Additional Notes Timeout performed with bedside RN. Anesthesia and surgical consent on chart. Standard aseptic technique: hat, mask, sterile gloves, eye protection. Monitors: NIBP, SpO2, EKG Sedation with meaningful contact. ChloraPrep to peripheral nerve block site. Ultrasound guidance throughout. Injectate: Ropivacaine 0.5% ?? Volume: 30 mL Clonidine 100mcg mixed with local anesthetic. Giovanna-neural/fascial plane visualization of local anesthetic spread. Ultrasound image saved to chart. Block performed per surgeon request (ordered on chart). Prabhu Najera MD ANESTHESIA ORDERABLES Final R esult * HIV 1,2 antibody, p24 antigen with reflex to differentiation (11/30/2024 1:32 PM EDT) HIV Combo AB/AG Negative Negative LAB CHEMISTRY METHOD 11/30/2024 7:06 PM EDT [facility] Blood Venous blood specimen / Unknown Venipuncture / Unknown 11/30/2024 1:32 PM EDT 11/30/2024 1:32 PM EDT Narrative [facility] - 11/30/2024 7:06 PM EDT This assay is a 4th generation assay allowing for earlier detection of HIV infection by detecting the presence of the HIV-1 p24 antigen as well as the traditional antibodies to HIV type 1 (including group O) and type 2. ??Use of a 4th generation assay is the current CDC recommendation for HIV screening. Terry Quiñonez MD LAB BLOOD ORDERABLES Final Result [facility] [address] [place] [address], * Pathologist Review Immunofixation (11/30/2024 1:32 PM EDT) Pathologist Interpretation Reviewed by Che Avendano MD 12/03/2024 1:52 PM EDT [facility] Blood Venous blood specimen / Unknown Venipuncture / Unknown 11/30/2024 1:32 PM EDT 11/30/2024 1:32 PM EDT us Terry Quiñonez MD LAB BLOOD ORDERABLES Final Result Performing Organization Address [facility]/ZIP Co de Phone Number [facility] [address] [place] [address], [place] [phone] * Treponema pallidum antibody with reflex to RPR and particle agglutination (11/30/2024 1:32 PM EDT) [facility] T. Pallidum Antibodies Negative Negative LAB CHEMISTRY METHOD 11/30/2024 6:37 PM EDT [facility] Blood Venous blood specimen / Unknown Venipuncture / Unknown 11/30/2024 1:32 PM EDT 11/30/2024 1:32 PM EDT us Terry Quiñonez MD LAB BLOOD ORDERABLES Final Result Performing Organization Address [facility] Co de Phone Number [facility] [address] [place] [address], [place] [phone] * Babesia microti antibodies, IGG and IGM (11/30/2024 1:32 PM EDT) [facility] Babesia microti IgG Antibodies <1:64 12/05/2024 10:40 PM EDT [facility] Babesia microti IgM Antibodies <1:20 12/05/2024 10:40 PM EDT [facility] Babesia microti Interpretation SEE NOTE 12/05/2024 10:40 PM EDT [facility] Comment: ANTIBODY NOT DETECTED REFERENCE RANGES: IgG <1:64 ?IgM <1:20 Elevated antibody levels to B. microti indicate exposure to the organism. Human babesiosis infection is transmitted by the bite of an infected Ixodes tick or less frequently from transfusion with blood from an infected donor. Definitive diagnosis is made by identifying intraerythrocytic organisms in peripheral blood. In patients with low parasitemia, antibody ? detection by IFA is recommended. IgG levels greater than or equal to 1:1024 can be detected in acute phase patients with parasites in blood smears. The IFA assay can be used as a seroepidemiologic tool to study the frequency and distribution of B. microti in endemic areas especially in persons with mixed infections also involving Borrelia burgdorferi. This test was developed and its analytical performance characteristics have been determined by [employer]. It has not been cleared or approved by FDA. This assay has been validated pursuant to the CLIA regulations and is used for clinical purposes. Test Performed at: [employer] [id number] [place], [place] ??[id number] ? I Noah ANDERSON, PhD Blood Venous blood specimen / Unknown Venipuncture / Unknown 11/30/2024 1:32 PM EDT 11/30/2024 1:32 PM EDT Terry Quiñonez MD LAB BLOOD ORDERABLES Final Result Performing Organization Address City/[facility]/ZIP Co de Phone Number [facility] [address] [place] [address] * Borrelia burgdorferi antibody (11/30/2024 1:32 PM EDT) [facility] Lyme Ab Negative Negative LAB CHEMISTRY METHOD 12/01/2024 9:50 AM EDT [facility] Comment: No laboratory evidence of infection with B. burgdorferi (Lyme disease). Negative results may occur in patients recently infected (<=14 days) with B. burgdorferi. ??If recent infection is suspected, repeat testing on a new sample collected in 7-14 days is recommended. Blood Venous blood specimen / Unknown Venipuncture / Unknown 11/30/2024 1:32 PM EDT 11/30/2024 1:32 PM EDT Terry Quiñonez MD LAB BLOOD ORDERABLES Final Result Performing Organization Address City/[facility] Co de Phone Number [facility] [address] [place] [address], * Cardiolipin antibodies, IgG, IgM and IgA (11/30/2024 1:32 PM EDT) [facility] Cardiolipin Antibody Screen Negative Negative LAB CHEMISTRY METHOD 12/04/2024 10:21 AM EDT [facility] Blood Venous blood specimen / Unknown Venipuncture / Unknown 11/30/2024 1:32 PM EDT 11/30/2024 1:32 PM EDT us Terry Quiñonez MD LAB BLOOD ORDERABLES Final Result [facility] [address] [place] [address], [place] [phone] * Sedimentation rate (11/30/2024 1:32 PM EDT) [facility] Sed Rate 14 0 - 20 mm/hr LAB HEMETOLOGY METHOD 11/30/2024 6:03 PM EDT [facility] Blood Venous blood specimen / Unknown Venipuncture / Unknown 11/30/2024 1:32 PM EDT 11/30/2024 1:32 PM EDT us Terry Quiñonez MD LAB BLOOD ORDERABLES Final Result Performing Organization Address City/[facility]/ZIP Co de Phone Number [facility] [address] [place] [address], [place] [phone] * Immunofixation electrophoresis serum (11/30/2024 1:32 PM EDT) [facility] Immunofixation Result, Serum No monoclonal immunoglobulins detected. LAB CHEMISTRY METHOD 12/03/2024 1:52 PM EDT [facility] Blood Venous blood specimen / Unknown Venipuncture / Unknown 11/30/2024 1:32 PM EDT 11/30/2024 1:32 PM EDT us Terry Quiñonez MD LAB BLOOD ORDERABLES Final Result Performing Organization Address [facility] Co de Phone Number [facility] [address] [place] [address], * (ABNORMAL) Immunoglobulins IgG, IgA, IgM (11/30/2024 1:32 PM EDT) Total IgG 1,020 549 - 1,584 mg/dL LAB CHEMISTRY METHOD 12/03/2024 6:06 PM EDT [facility] IgA 381(H) 61 - 348 mg/dL LAB CHEMISTRY METHOD 12/03/2024 6:06 PM EDT [facility] IgM 76 23 - 259 mg/dL LAB CHEMISTRY METHOD 12/03/2024 6:06 PM EDT [facility] Blood Venous blood specimen / Unknown Venipuncture / Unknown 11/30/2024 1:32 PM EDT 11/30/2024 1:32 PM EDT [facility] Quiñonez MD LAB BLOOD ORDERABLES Final Result Performing Organization Address [facility] de Phone Number [facility] [address] [place] [address], * MR Brain w Contrast (10/11/2024 3:58 PM EDT) Anatomical Region Laterality Modality Head and Neck Magnetic Resonan ce 10/11/2024 4:22 PM EDT Impressions 10/11/2024 4:34 PM EDT Nonspecific white matter lesions. These demonstrate no enhancement. -------- FINAL REPORT -------- Dictated By: Leticia Dumont Dictated Date: 10/11/2024 16:22 ET Assigned Physician: Leticia Dumont Reviewed and Electronically Signed By: Leticia Dumont Signed Date: 10/11/2024 16:34 ET Workstation ID: [id number] Transcribed By: Self Edit Transcribed Date: 10/11/2024 16:22 ET Narrative 10/11/2024 4:34 PM EDT MR BRAIN W CONTRAST MRI BRAIN WITH CONTRAST ?? HISTORY: ??Nonspecific lesion on noncontrast MRI concerning for demyelinating disease. COMPARISON: Noncontrast brain MRI 09/26/2024. Technique: MRI of the brain with contrast was performed utilizing the standard departmental protocol. [17] cc IV Dotarem was administered to the patient. Noncontrast imaging was performed for localization purposes. FINDINGS: Bilateral subcortical and deep white matter lesions are again noted and are unchanged. These demonstrate no enhancement. The ventricles and sulci are normal in size and symmetric. There is no acute intracranial hemorrhage or acute infarct. There is no mass effect or midline shift. The basal cisterns are patent. There is no abnormal parenchymal enhancement. The pituitary gland is grossly unremarkable. Infundibulum is midline. There is no abnormality at the foramen magnum. Retention cyst in the right maxillary sinus is unchanged. The paranasal sinuses and mastoid air cells are otherwise clear. Bilateral scalp lesions are unchanged. Procedure Note Leticia Dumnot MD - 10/11/2024 MR BRAIN W CONTRAST MRI BRAIN WITH CONTRAST HISTORY: Nonspecific lesion on noncontrast MRI concerning fordemyelinating disease. COMPARISON: Noncontrast brain MRI 09/26/2024. Technique: MRI of the brain with contrast was performed utilizing thestandard departmental protocol. [17] cc IV Dotarem was administered to thepatient. Noncontrast imaging was performed for localization purposes. FINDINGS: Bilateral subcortical and deep white matter lesions are again noted andare unchanged. These demonstrate no enhancement. The ventricles and sulci are normal in size and symmetric. There is no acute intracranial hemorrhage or acute infarct. There is nomass effect or midline shift. The basal cisterns are patent. There is no abnormal parenchymal enhancement. The pituitary gland isgrossly unremarkable. Infundibulum is midline. There is no abnormality at the foramen magnum. Retention cyst in the right maxillary sinus is unchanged. The paranasalsinuses and mastoid air cells are otherwise clear. Bilateral scalp lesions are unchanged. IMPRESSION: Nonspecific white matter lesions. These demonstrate no enhancement. -------- FINAL REPORT -------- Dictated By: Leticia Dumont Dictated Date: 10/11/2024 16:22 ET Assigned Physician: Leticia Dumont Reviewed and Electronically Signed By: Leticia Dumont Signed Date: 10/11/2024 16:34 ET Workstation ID: [id number] Transcribed By: Self Edit Transcribed Date: 10/11/2024 16:22 ET Emmy Claros MD [facility] MRI PROCEDURES Final Result * (ABNORMAL) Lipid panel with reflex to direct LDL (09/19/2024 8:40 AM EST) Cholesterol 111 0 - 200 mg/dL LAB CHEMISTRY METHOD 09/19/2024 10:24 AM EST [facility] Triglycerides 79 0 - 150 mg/dL LAB CHEMISTRY METHOD 09/19/2024 10:24 AM EST [facility] HDL 39(L) >=40 mg/dL LAB CHEMISTRY METHOD 09/19/2024 10:24 AM EST [facility] LDL Calculated 56 0 - 100 mg/dL LAB CHEMISTRY METHOD 09/19/2024 10:24 AM EST [facility] VLDL Cholesterol Stevenson 15.8 mg/dL LAB CHEMISTRY METHOD 09/19/2024 10:24 AM EST [facility] Non HDL Chol. (LDL+VLDL) 72 <145 mg/dL LAB CHEMISTRY METHOD 09/19/2024 10:24 AM EST [facility] Chol/HDL Ratio 2.8 0.0 - 4.4 LAB CHEMISTRY METHOD 09/19/2024 10:24 AM EST [facility] Blood Venous blood specimen / Unknown Venipuncture / Unknown 09/19/2024 8:40 AM EST 09/19/2024 8:40 AM EST us Emmy Claros MD LAB BLOOD ORDERABLES Final Resul t [facility] [address] [place] [address], * Depression Screening (01/30/2024) Pathologist [facility] Depression Screening Abstracted Historical Provider HEALTH MAINTENANCE Final Result * Cervical Cancer Screening: HPV (10/07/2021) [facility] Cervical Cancer Screening: HPV Negative, abstracted Historical Provider HEALTH MAINTENANCE Final Result * Hepatitis C Screening (09/05/2018) [facility] Hepatitis C Screening Abstracted Historical Provider HEALTH MAINTENANCE Final Result from Last 3 Months or Most Recently Relevant to Health Maintenance Insurance [facility] Advance Directives * Full Code - Default (Latest Code Status on File) Date Activated Date Inactivated Comments 12/05/2024 7:38 AM 12/05/2024 2:45 PM This is order is used when code status has not been discussed with the patient, or code status is otherwise unknown/unconfirmed To update the patient's code status, place a code status order. Do not modify or discontinue any currently active code status orders. Care Teams [employer] Relationship Specialty Start Date End Date Emmy Claros MD [address] [place] [id number] PCP - General Internal Medicine 07/11/24
[2025-01-09 07:55] VITALS: BMI 29.2
[2025-01-11] VITALS (7 sets, daily range): BP systolic 98–116; BP diastolic 62–75; PULSE 72–84; RESP 14–16; TEMP 36.1–36.6; O2SAT 98–100; BMI 30.7
--- NOTE | ~2025-01-11 | FL_ITS ---
EXAMINATION: XR LUMBAR PUNCTURE CLINICAL INFORMATION: WHITE MATTER DISEASE, VERTIGO COMPARISON: None available. TECHNIQUE: Following explaining fluoroscopy-guided lumbar puncture procedure, benefits and risk, a written consent was obtained. Patient was placed prone on fluoroscopy table and an area was marked on the skin over lying the L4-5 disc level. Low back area was cleaned and draped in usual sterile manner. 1% lidocaine was injected puncture site. A 22-gauge spinal needle was injected from the skin intrathecally at the L4-5 disc level. After observing CSF return following removal of stylet, patient was quickly placed in left lateral decubitus view an opening CSF pressure was obtained. Subsequently fluid was collected in 4 test tubes. The stylet was reintroduced following procedure and needle withdrawn. Complete hemostasis achieved at puncture site. Examination tolerated procedure extremely well. Patient did have transient complaints right leg radiculopathy. Sterile Band-Aid applied post procedure. FINDINGS: On visualized images of the vertebral heights, alignment and disc heights are normal. Successful fluoroscopy-guided lumbar puncture performed at L4-5 disc level. The opening CSF extra measured 8 cm of water. Approximately 14 mL of clear CSF fluid was collected in 4 test tubes and sent to lab as per physician request. FLUOROSCOPY TIME: 12 seconds DOSE AREA PRODUCT: History 39.2 uGy-m2 (microgray-meter squared) FL/FL guided lumbar puncture LP IMPRESSION: Successful fluoroscopy-guided lumbar puncture performed with transient complains of right leg radiculopathy. Electronically signed by: Ki Escalante MD 01/11/2025 04:49 PM EDT
[2025-01-11 12:13] LABS: MANUAL DIFF FLAG NO
[2025-01-11 12:23] LABS: Basophils Percent Auto 0.3 % (0-2); Eosinophils Absolute Auto 0.1 X10*3/uL (0.0-0.4); Eosinophils Percent Auto 1.1 % (0-4); Hematocrit 32.5 % (37.0-47.0); Hemoglobin 10.2 g/dl (12.0-16.0); Imm Gran Abs Auto 0.02 X10*3/uL (0.00-0.03); Imm Gran Pct Auto 0.3 % (0.0-0.4); Lymphocytes Absolute Auto 2.1 X10*3/uL (1.2-4.9); Lymphocytes Percent Auto 26.1 % (20-40); Mean Corpuscular HGB Conc 31.4 g/dl (31.0-35.0); Mean Corpuscular Hemoglobin 21.5 pg (27.0-33.0); Mean Corpuscular Volume 68.4 fL (80.0-98.0); Mean Platelet Volume 10.4 fL (9.4-12.3); Monocytes Absolute Auto 0.5 X10*3/uL (0.1-1.2); Monocytes Percent Auto 6.3 % (2-11); Neutrophils Absolute Auto 5.3 x10*3/uL (2.0-8.3); Neutrophils Percent Auto 65.9 % (45-73); Platelet Count 294 X10*3/uL (160-400); Red Blood Count 4.75 X10*6/uL (4.20-5.50)
[2025-01-11 12:31] LABS: Prothrombin Time 11.2 SEC (10.9-12.4)
[2025-01-11 12:34] LABS: Partial Thromboplastin Time 29.8 SEC (26.0-36.8)
[2025-01-11] MEDS: Acetaminophen 325 MG TABLET 975 MG PO (15:04)
[2025-01-11 15:34] LABS: CSF Appearance Clear, Colorless; CSF Tube # 1
[2025-01-11 15:40] LABS: Glucose CSF 50 mg/dL; Total Protein CSF 20.8 mg/dL (15-45)
[2025-01-11 16:34] LABS: Appearance CSF CLEAR; CSF Tube # 4; Color CSF COLORLESS; Lymphocytes CSF 100 %; Red Blood Cell CSF 12 MM*3; White Blood Cell CSF 2 MM*3
[2025-01-14 07:07] LABS: Oligoclonal Serum Yes
[2025-01-15 08:18] LABS: Albumin 3.5 g/dL (3.6-5.1); Albumin, CSF 11.2 mg/dL (8.0-42.0); IgG 879 mg/dL (600-1640); IgG Synthesis Rate -2.7 mg/24 h (-9.9-3.3); IgG, CSF 1.4 mg/dL (0.8-7.7)
[2025-01-17 08:59] LABS: Oligoclonal Banding Absent (Absent)
== END 2025-01-11 16:25 | disposition home or self-care (01) ==
PROVIDERS: Radiology Diagnostic Radiology; PCP Internal Medicine; Visit Provider Psychiatry & Neurology Neurology
PROC: 009U3ZZ Drainage of Spinal Canal, Percutaneous Approach (ICD-10-PCS; CPT 62270; principal; 2025-01-11 13:00)
DX: G93.49 Other encephalopathy (principal); R42 Dizziness and giddiness; F32.A Depression, unspecified; F41.9 Anxiety disorder, unspecified; Z79.899 Other long term (current) drug therapy
CPT/HCPCS: 36415; 62328; 82042; 82945; 83916; 84157; 85025; 85610; 85730; 87015; 87070; 87205; 89051; J2003

== ENCOUNTER → 2025-01-11 14:00 | Outpatient (BNV) | payer OTHER, SELFPAY | PROVIDERS: PCP Internal Medicine; Visit Provider Radiology Diagnostic Radiology | DX: R90.82 White matter disease, unspecified (principal); R42 Dizziness and giddiness | CPT/HCPCS: 62328 ==